=== PATIENT | male | born 1975 | race African-American/Black ===

== ENCOUNTER 2023-03-28 10:26 | Inpatient (IN) | payer BC ==
--- OUTSIDE RECORDS SUMMARY | 2023-03-28 10:34 | XMS REPORT | Continuity of Care Document ---
:1975 Author Organization [facility] t Address [address] [facility] [place] [address] [place] [address] Care Team Providers Name Role Phone Asked, No Pcp Primary Care Physician Unavailable TREASURE MANRIQUE Attending Clinician Unavailable LENKA HILLMAN Attending Clinician Unavailable YING ZAMUDIO Attending Clinician Unavailable WILLOW TORRES Attending Clinician Unavailable DARRIN SERRANO Attending Clinician Unavailable Louis PEARSON, Ara Attending Clinician Unavailable Britney Beaulieu Attending Clinician Unavailable Swathi PEARSON, Berna Attending Clinician Unavail able Mary Mitchell Attending Clinician Unavailable Nain PEARSON, Airam Attending Clinician Unavailable DIANA POSADAS Attending Clinician Unavailable Only, [facility] Test Attending Clinician Unavailable Diana Posadas MD Attending Clinician Malik Swann MD Attending Clinician MORENO MCDANIELS Attending Clinician Unavailable UNKNOWN, ATTENDING Attending Clinician Unavailable Doctor Unassigned, [place] Attending Clinician Unavailable Pcp, Patient Does Not Have A Attending Clinician [phone] Nurse, Ar[facility] Attending Clinician Unavail able Thor Montero MD Attending Clinician THOR MONTERO Attending Clinician Unavailable Luis Antonio Hewitt Attending Clinician Nando hCarles Attending Clinician Jennifer Delgado Attending Clinician Jennifer Delgado Admitting Clinician Payers Payer Name Policy Type Policy Number Effective Date Expiration Date Tavia del angel [place] [facility] [id number] 2017 [facility] 00:00:00 [employer] [facility] [id number] 2017 00:00:00 Problems Condition Condition Condition Status Onset Resolution Last Treating Co mments Source Name Details Category Date Date Treatment Clinician Date Mixed Mixed Disease Active [facility] hyperlipid hyperlipid 01-23 He alth emia emia 00:00: 00 Essential Essential Disease Active 2019-05 [facility] hypertensi hypertensi 06-08 He alth on on 00:00: 00 High blood High blood Disease Active 2019-05 U T pressure pressure 06-08 Health 00:00: 00 Rectal Rectal Disease Active [facility] bleeding bleeding 07-04 Health 00:00: 00 RETAL RETAL Diagnosis Active 2018-07-04 Me moria BLEEDING/H BLEEDING/H 07-04 07:16:00 l A A Active 00:00: Doug 07/04/2018 00 [facility] [place] History of Past Illness Condition Condition Condition Status Onset Resolution Last Treating Co mments Source Name Details Category Date Date Treatment Clinician Date Residual Residual Problem 2018-2018-07-07 2018-07-07 [facility] hemorrhoid hemorrhoid 07-04 01:37:00 01:37:00 l al skin al skin 06:00: [place] tags tags 00 07/04/2018 07/07/2018 [facility] [place] Cutaneous Cutaneous Problem 2018-2018-07-07 2018-07-07 Mem[facility] abscess of abscess of 07-04 01:37:00 01:37:00 l buttock buttock 06:00: Doug 07/04/2018 00 07/07/2018 [facility] [place] Headache Headache Problem 2018-2018-07-07 2018-07-07 Mem[facility] 07/04/201807-04 01:37:00 01:37:00 l 07/07/2018 06:00: Wood [employer] Strain of Strain of Problem 2016-2017-03-10 2017-03-10 Memoria muscle and muscle and 05-07 03:12:39 03:12:39 l tendon of tendon of 05:00: Herm kristine front wall front wall 00 of thorax, of thorax, initial initial encounter encounter 03/07/2017 03/10/2017 [place] Essential Essential Problem 2016-2016-10-22 2016-10-22 Memoria (primary) (primary) 6-15 05:19:06 05:19:06 l hypertensi hypertensi 05:00: He rmann on on 10/19/2016 10/22/2016 [place] Allergies, Adverse Reactions, Alerts Allergy Allergy Status Severity Reaction(s) Onset Inactive Treating Comm ents Source Name Type Date Date Clinician Hydrocod Drug Active [facility] one-Acet Allergy 05-11 Health aminophe 00:00: n 00 Hydrocod Allergy Active Hives 2018-05 [facility] one to 05-16 Health substanc 00:00: e 00 Hydrocod Propensi Active Hives 2018-05 [facility] one ty to 05-16 st adverse 00:00: Hospita reaction 00 l s to drug Vicodin Vicodin Active Memoria l [place] NO KNOWN Drug Active [facility] ALLERGIE Class ity of [facility] Social History Social Habit Start Date Stop Date Quantity Comments Source Sexual orientation [facility] Alcohol intake 2023-01-01 2023-01-01 1.14 /d [facility] 00:00:00 00:00:00 Exposure to 2022-05-05 2022-05-15 Not sure [facility] SARS-CoV-2 (event) 00:00:00 17:44:00 Tobacco use and 2022-01-23 2022-01-23 Smokeless [facility] exposure 00:00:00 00:00:00 tobacco non-user History of Social 2019-03-16 2019-03-[address] function 00:00:00 00:00:00 [facility] Social History 2017-01-12 2017-01-12 [facility] 02:29:44 02:29:44 Sex Ass[birth year] At [birth year] [facility] Smoking Status Start Date Stop Date Source Tobacco smoking consumption unknown [facility] Never smoked tobacco [facility] Medications Ordered Filled Start Stop Current Ordering Indication Dosage Frequency Signature Comments Components Source Medication Medication Date Date Medication? Clinician (SIG) Name Name losartan Yes [id number] 100mg QD Take 1 [facility] (Cozaar) 8 tablet Health 100 MG 00:00: (100 mg tablet 00 total) by mouth 1 (one) time each day. chlorthalid 2023-0 Yes [id number] 25mg QD Take 1 [facility] one 8-28 tablet (25 Health (Hygroton) 00:00: mg total) 25 MG 00 by mouth 1 tablet (one) time each day. tadalafil 2023-0 Yes [id number] 20mg Take 1 U T (Cialis) 20 8-28 tablet (20 He alth MG tablet 00:00: mg total) 00 by mouth 1 (one) time each day if needed for erectile dysfunctio n. Take 30 minutes prior to intercours e hydrocortis 3-0 Yes [id number] Q.5D Apply U T one 2.5 % 8-28 topically Healt h ointment 00:00: 2 (two) 00 times a day if needed for irritation . losartan 2022-0 Yes [id number] 100mg QD Take 1 [facility] (Cozaar) 8-28 tablet Health 100 MG 00:00: (100 mg tablet 00 total) by mouth 1 (one) time each day. chlorthalid 3-0 Yes [id number] 25mg QD Take 1 [facility] one 8-28 tablet (25 Health (Hygroton) 00:00: mg total) 25 MG 00 by mouth 1 tablet (one) time each day. tadalafil 3-0 Yes [id number] 20mg Take 1 U T (Cialis) 20 8-28 tablet (20 He alth MG tablet 00:00: mg total) 00 by mouth 1 (one) time each day if needed for erectile dysfunctio n. Take 30 minutes prior to intercours e hydrocortis 3-0 Yes [id number] Q.5D Apply U T one 2.5 % 8-28 topically Healt h ointment 00:00: 2 (two) 00 times a day if needed for irritation . losartan 3-0 Yes [id number] 100mg QD Take 1 [facility] (Cozaar) 8-28 tablet Health 100 MG 00:00: (100 mg tablet 00 total) by mouth 1 (one) time each day. chlorthalid 2023-0 Yes [id number] 25mg QD Take 1 [facility] one 8-28 tablet (25 Health (Hygroton) 00:00: mg total) 25 MG 00 by mouth 1 tablet (one) time each day. tadalafil Yes [id number] 20mg Take 1 U T (Cialis) 20 01-01 tablet (20 He alth MG tablet 00:00: mg total) 00 by mouth 1 (one) time each day if needed for erectile dysfunctio n. Take 30 minutes prior to intercours e hydrocortis Yes [id number] Q.5D Apply U T one 2.5 % 01-01 topically Healt h ointment 00:00: 2 (two) 00 times a day if needed for irritation . simvastatin 2023- Yes [id number] 20mg Take 1 UT (Zocor) 20 01-01 tablet (20 He alth MG tablet 00:00: 05:59 mg total) 00 :00 by mouth every night. simvastatin 2023- Yes [id number] 20mg Take 1 [facility] (Zocor) 20 01-01 tablet (20 He alth MG tablet 00:00: 05:59 mg total) 00 :00 by mouth every night. simvastatin 2023- Yes [id number] 20mg Take 1 UT (Zocor) 20 01-01 tablet (20 He alth MG tablet 00:00: 05:59 mg total) 00 :00 by mouth every night. simvastatin 2022- No [id number] 20mg Take 1 UT (Zocor) 20 05-18 tablet (20 He alth MG tablet 00:00: 00:00 mg total) 00 :00 by mouth every night. simvastatin 2022- No [id number] 20mg Take 1 UT (Zocor) 20 05-18 tablet (20 He alth MG tablet 00:00: 00:00 mg total) 00 :00 by mouth every night. simvastatin 2022- No [id number] 20mg Take 1 UT (Zocor) 20 05-18 tablet (20 He alth MG tablet 00:00: 00:00 mg total) 00 :00 by mouth every night. chlorthalid Yes [id number] 25mg QD Take 1 [facility] one 1-11 tablet (25 Health (Hygroton) 00:00: mg total) 25 MG 00 by mouth 1 tablet (one) time each day. losartan 3-0 Yes [id number] 100mg QD Take 1 UT (Cozaar) 1-11 tablet Health 100 MG 00:00: (100 mg tablet 00 total) by mouth 1 (one) time each day. hydrocortis 3-0 Yes [id number] Q.5D Apply U T one 2.5 % 1-11 topically Healt h ointment 00:00: 2 (two) 00 times a day if needed for irritation . chlorthalid 3-0 Yes [id number] 25mg QD Take 1 UT one 1-11 tablet (25 Health (Hygroton) 00:00: mg total) 25 MG 00 by mouth 1 tablet (one) time each day. losartan 2022-0 Yes [id number] 100mg QD Take 1 UT (Cozaar) 1-11 tablet Health 100 MG 00:00: (100 mg tablet 00 total) by mouth 1 (one) time each day. hydrocortis 3-0 Yes [id number] Q.5D Apply U T one 2.5 % -11 topically Healt h ointment 00:00: 2 (two) 00 times a day if needed for irritation . chlorthalid 2022-0 3- No [id number] 25mg QD Take 1 UT one 05-17-28 tablet (25 Health (Hygroton) 00:00: 00:00 mg total) 25 MG 00 :00 by mouth 1 tablet (one) time each day. losartan 2022-0 3- No [id number] 100mg QD Take 1 U T (Cozaar) 05-17-28 tablet Health 100 MG 00:00: 00:00 (100 mg tablet 00 :00 total) by mouth 1 (one) time each day. hydrocortis 3-0 2023- No [id number] Q.5D Apply UT one 2.5 % 05-17 topically Heal th ointment 00:00: 00:00 2 (two) 00 :00 times a day if needed for irritation . chlorthalid 2022-0 3- No [id number] 25mg QD Take 1 [facility] one -03 14-28 tablet (25 Health (Hygroton) 00:00: 00:00 mg total) 25 MG 00 :00 by mouth 1 tablet (one) time each day. losartan 2022- No [id number] 100mg QD Take 1 U T (Cozaar) 05-17 tablet Health 100 MG 00:00: 00:00 (100 mg tablet 00 :00 total) by mouth 1 (one) time each day. hydrocortis 2022- No [id number] Q.5D Apply UT one 2.5 % 05-17 topically Heal th ointment 00:00: 00:00 2 (two) 00 :00 times a day if needed for irritation . chlorthalid 2022- No [id number] 25mg QD Take 1 UT one 05-17 tablet (25 Health (Hygroton) 00:00: 00:00 mg total) 25 MG 00 :00 by mouth 1 tablet (one) time each day. losartan No [id number] 100mg QD Take 1 U T (Cozaar) 05-17 tablet Health 100 MG 00:00: 00:00 (100 mg tablet 00 :00 total) by mouth 1 (one) time each day. hydrocortis 2022- No [id number] Q.5D Apply UT one 2.5 % 05-17 topically Heal th ointment 00:00: 00:00 2 (two) 00 :00 times a day if needed for irritation . losartan No [id number] 100mg QD Take 1 U T (Cozaar) 01-23 tablet Health 100 MG 00:00: 04:59 (100 mg tablet 00 :00 total) by mouth 1 (one) time each day. chlorthalid 2022- No [id number] 25mg QD Take 1 UT one 01-23 tablet (25 Health (Hygroton) 00:00: 04:59 mg total) 25 MG 00 :00 by mouth 1 tablet (one) time each day. losartan 2022- No [id number] 100mg QD Take 1 U T (Cozaar) 01-23 tablet Health 100 MG 00:00: 04:59 (100 mg tablet 00 :00 total) by mouth 1 (one) time each day. chlorthalid 2022- No [id number] 25mg QD Take 1 UT one 01-23 tablet (25 Health (Hygroton) 00:00: 04:59 mg total) 25 MG 00 :00 by mouth 1 tablet (one) time each day. losartan 2022- No [id number] 100mg QD Take 1 U T (Cozaar) 01-23 tablet Health 100 MG 00:00: 04:59 (100 mg tablet 00 :00 total) by mouth 1 (one) time each day. chlorthalid No [id number] 25mg QD Take 1 UT one 01-23 tablet (25 Health (Hygroton) 00:00: 04:59 mg total) 25 MG 00 :00 by mouth 1 tablet (one) time each day. losartan No [id number] 100mg QD Take 1 U T (Cozaar) 01-23 tablet Health 100 MG 00:00: 04:59 (100 mg tablet 00 :00 total) by mouth 1 (one) time each day. chlorthalid No [id number] 25mg QD Take 1 UT one 01-23 tablet (25 Health (Hygroton) 00:00: 04:59 mg total) 25 MG 00 :00 by mouth 1 tablet (one) time each day. losartan No [id number] 100mg QD Take 1 U T (Cozaar) 01-23 tablet Health 100 MG 00:00: 00:00 (100 mg tablet 00 :00 total) by mouth 1 (one) time each day. chlorthalid No [id number] 25mg QD Take 1 UT one 01-23 tablet (25 Health (Hygroton) 00:00: 00:00 mg total) 25 MG 00 :00 by mouth 1 tablet (one) time each day. hydrocortis 2022- No Q.5D Apply UT one 2.5 % 01-23 topically Heal th ointment 00:00: 00:00 2 (two) 00 :00 times a day if needed. losartan 2022- No [id number] 100mg QD Take 1 U T (Cozaar) 01-23 tablet Health 100 MG 00:00: 00:00 (100 mg tablet 00 :00 total) by mouth 1 (one) time each day. chlorthalid 2022- No [id number] 25mg QD Take 1 UT one 01-23 tablet (25 Health (Hygroton) 00:00: 00:00 mg total) 25 MG 00 :00 by mouth 1 tablet (one) time each day. hydrocortis 2022- No Q.5D Apply UT one 2.5 % 01-23 topically Heal th ointment 00:00: 00:00 2 (two) 00 :00 times a day if needed. methocarbam Yes [id number] 500mg Q6H Take 1 UT ol 5-03 tablet Health (Robaxin) 00:00: (500 mg 500 MG 00 total) by tablet mouth every 6 (six) hours if needed for muscle spasms for up to 15 days. methocarbam 2021- No [id number] 500mg Q6H Take 1 UT ol -01-23 tablet Health (Robaxin) 00:00: 00:00 (500 mg 500 MG 00 :00 total) by tablet mouth every 6 (six) hours if needed for muscle spasms for up to 15 days. levocetiriz 2022- No [id number] 5mg Take 1 UT ine (Xyzal) 08-30 tablet (5 He alth 5 MG tablet 00:00: 04:59 mg total) 00 :00 by mouth 1 (one) time each day in the evening. chlorthalid 2022- No [id number] 25mg QD Take 1 UT one 08-30 tablet (25 Health (Hygroton) 00:00: 04:59 mg total) 25 MG 00 :00 by mouth 1 tablet (one) time each day. losartan 2022- No [id number] 100mg QD Take 1 U T (Cozaar) 08-30- tablet Health 100 MG 00:00: 04:59 (100 mg tablet 00 :00 total) by mouth 1 (one) time each day. chlorthalid 2021- No [id number] 25mg QD Take 1 UT one 08-30 tablet (25 Health (Hygro[place]) 00:00: 00:00 mg total) 25 MG 00 :00 by mouth 1 tablet (one) time each day. losartan 2021- No [id number] 100mg QD Take 1 U T (Cozaar) 08-30 tablet Health 100 MG 00:00: 00:00 (100 mg tablet 00 :00 total) by mouth 1 (one) time each day. levocetiriz 2021- No [id number] 5mg Take 1 UT ine (Xyzal) 08-30 tablet (5 He alth 5 MG tablet 00:00: 00:00 mg total) 00 :00 by mouth 1 (one) time each day in the evening. Na Yes [id number] DISPENSE UT Sulfate-K - ONE KIT Health Sulfate-Mg 00:00: Sulf 00 (Suprep Bowel Prep Kit) 17.5-3.13-1 .6 GM/177ML solution Na 2021- No [id number] DISPENSE UT Sulfate-K 07-25 ONE KIT Health Sulfate-Mg 00:00: 00:00 Sulf 00 :00 (Suprep Bowel Prep Kit) 17.5-3.13-1 .6 GM/177ML solution hydrocortis 2022- No [id number] Q.5D Apply UT one 2.5 % 07-06 topically Heal th ointment 00:00: 05:59 2 (two) 00 :00 times a day if needed for irritation or rash. hydrocortis 2022- No [id number] Q.5D Apply UT one 2.5 % 07-06 topically Heal th ointment 00:00: 05:59 2 (two) 00 :00 times a day if needed for irritation or rash. hydrocortis 2021- No [id number] Q.5D Apply UT one 2.5 % 07-06 topically Heal th ointment 00:00: 00:00 2 (two) 00 :00 times a day if needed for irritation or rash. chlorthalid 2021- No [id number] 25mg QD Take 1 UT one 07-06 tablet (25 Health ([place]) 00:00: 00:00 mg total) 25 MG 00 :00 by mouth 1 tablet (one) time each day. losartan 2021- No [id number] 100mg QD Take 1 U T (Cozaar) 07-06 tablet Health 100 MG 00:00: 00:00 (100 mg tablet 00 :00 total) by mouth 1 (one) time each day. ibuprofen Yes 600mg Q8H Take 600 UT 600 MG 9-30 mg by Health tablet 00:00: mouth 00 every 8 (eight) hours. ibuprofen 2021- No 600mg Q8H Take 600 UT 600 MG 9-30 09-19 mg by Health tablet 00:00: 00:00 mouth 00 :00 every 8 (eight) hours. gabapentin TAKE 1 UT (Neurontin) 08-12 CAPSULE(S) H ealth 300 MG 00:00: 00:00 BY MOUTH 3 capsule 00 :00 TIMES DAILY FOR PERSISTENT NERVE PAIN/TINGL ING/ NUMBNESS meloxicam TAKE 1 UT (Mobic) 15 08-12 TABLET(S) Hea lth MG tablet 00:00: 00:00 BY MOUTH 00 :00 ONCE A DAY WITH MEALS FOR MUSCLE /JOINT / BACK PAIN AND INFLAMMATI ON losartan 2019-05- No UT (Cozaar) 2 03 Health 100 MG 00:00: 00:00 tablet 00 :00 losartan 2018-05 Yes 25mg QD Take 25 mg Met [facility]odi (COZAAR) 25 1-[address] MG tablet 20:28: daily. Hospit a 20 l losartan 2018-05 Yes 25mg QD Take 25 mg Met hodi (COZAAR) 25 1-[address] MG tablet 20:28: daily. Hospit a 20 l losartan 2018-05 Yes 25mg QD Take 25 mg Met hodi (COZAAR) 25 1-[address] MG tablet 20:28: daily. Hospit a 20 l ibuprofen 2018-05 Yes 800mg Q8H Take 1 Metho di (ADVIL) 800 1-[address] MG tablet 00:00: (800 mg Hospi ta 00 total) by l mouth every 8 (eight) hours as needed for mild pain or moderate pain for up to 30 doses. ibuprofen 2018-05 Yes 800mg Q8H Take 1 Metho di (ADVIL) 800 1-[address] MG tablet 00:00: (800 mg Hospi ta 00 total) by l mouth every 8 (eight) hours as needed for mild pain or moderate pain for up to 30 doses. ibuprofen 2018-05 Yes 800mg Q8H Take 1 Metho di (ADVIL) 800 1-[address] MG tablet 00:00: (800 mg Hospi ta 00 total) by l mouth every 8 (eight) hours as needed for mild pain or moderate pain for up to 30 doses. doxycycline Yes 100 mg = 1 Memoria hyclate 100 2-28 tab, PO, l MG Oral 14:19: Q12H, X 10 Herm kristine Tablet 00 day, # 20 tab, 0 Refill(s) hydrocortis Yes 1 appl, Mem oria one acetate -28 ID, TID, X l 10 MG/ML / 14:19: 14 day, # He rmann Pramoxine 00 10 gm, 0 hydrochlori Refill(s) de 10 MG/ML Rectal Foam [Proctofoam -HC] Epinephrine No Notes: Meño katherin 0.01 MG/ML 07-04 (Same as: l / Lidocaine 13:53: Xylocaine H ermann Hydrochlori 00 w/Epinephr de 10 MG/ML ine) Injectable Solution Saline No Notes: Memoria Flush 0.9% 07-04 (Same as: l 12:56: BD [place] 00 Posiflush) orphenadrin 2016-05 Yes 100 mg = 1 Memoria e 100 mg - tab, PO, l oral 23:04: BID, X 10 Doug tablet, 00 day, # 20 extended tab, 0 release Refill(s) Tylenol 2016-05 No 1 - 2 tab, Meño katherin with 1-01 PO, Q4H, l Codeine #4 23:04: PRN Pain, He rmann oral tablet 00 X 2 day, # 20 ea, 0 Refill(s) Motrin 600 2016-05 Yes 600 mg = 1 M emoria mg oral - tab, PO, l tablet 23:04: Q6H, PRN [place] 00 Pain, take with food, X 5 day, # 20 tab, 0 Refill(s) orphenadrin 2016-05 No 60 mg, Meño katherin e 05-07 Route: IM, l 22:16: ONCE, Dosing Weight 93.182, kg, Priority: STAT, Start date: 03/07/17 17:16:00 CDT, Stop date: 03/07/17 17:16:00 CDT ketOROLAC 2016-05 No 30 mg, Memori a 05-07 Route: IM, l 22:16: ONCE, Dosing Weight 93.182, kg, Priority: STAT, Start date: 03/07/17 17:16:00 CDT, Stop date: 03/07/17 17:16:00 CDT Losartan No Notes: Memoria 01-12 (Same as: l 14:00: Cozaar) Benadryl No Notes: Memoria 01-12 (Same as: l 11:29: Benadryl) Dilaudid No Notes: Memoria 01-12 Same as l 04:11: Dilaudid losartan Yes 100 mg = 1 Mem oria 100 mg oral 01-12 tab, PO, l tablet 02:34: Daily, # Doug 00 90 tab, 0 Refill(s) sodium No 1,000 mL, Memori a chloride 01-12 Rate: 125 l 0.9% 1000 01:20: ml/hr, Wood n ml INJ 00 Infuse 1,000 mL over: 8 hr, Route: IV, Dosing Weight 91.989 kg, Total Volume: 1,000, Start date: 01/11/17 20:20:00 CDT, Duration: 30 day, Stop date: 02/10/17 20:19:00 CDT Saline No Notes: Memoria Flush 0.9% 01-12 (Same as: l 01:20: BD Posiflush) Ondansetron No Notes: Meño katherin 01-12 (Same as: l 01:20: Zofran) MEDICATION WASTE Product Size: 4 mg Product Wasted: ___ mg Morphine No 1 mg, 0.5 Meño katherin 01-12 mL, Route: l 01:20: IVP, Drug form: SOLN, Q6H, Dosing Weight 91.989, kg, PRN Pain Score 7-10, Start date: 01/11/17 20:20:00 CDT, Duration: 30 day, Stop date: 02/10/17 20:19:00 CDT Acetaminoph 2017-0 No Notes: Do M mickya en 01-12 not exceed l 01:20: 4 gm/day. Doug 00 (Same as: Tylenol) Famotidine 2017-0 No 20 mg, Memor ia 01-11 Route: l 23:53: IVP, ONCE, Dosing Weight 91.989, kg, Priority: STAT, Start date: 01/11/17 18:53:00 CDT, Stop date: 01/11/17 18:53:00 CDT Hydromorpho 2017-0 No 0.5 mg, Mem oria ne 01-11 Route: l 23:53: IVP, ONCE, Dosing Weight 91.989, kg, Priority: STAT, Start date: 01/11/17 18:53:00 CDT, Stop date: 01/11/17 18:53:00 CDT Hydromorpho 2017-0 No 1 mg, Memor ia ne 01-11 Route: l 20:40: IVP, ONCE, Dosing Weight 91.989, kg, Priority: STAT, Start date: 01/11/17 15:40:00 CDT, Stop date: 01/11/17 15:40:00 CDT Dilaudid 2017-0 No 1 mg, Memoria 01-11 Route: IV, l 20:37: ONCE, Dosing Weight 91.989, kg, Start date: 01/11/17 15:37:00 CDT, Stop date: 01/11/17 15:37:00 CDT Morphine 2017-0 No 4 mg, Memoria 01-11 Route: l 19:53: IVP, ONCE, Dosing Weight 91.989, kg, Priority: STAT, Start date: 01/11/17 14:53:00 CDT, Stop date: 01/11/17 14:53:00 CDT Ondansetron 2017-0 No 4 mg, Memor ia 01-11 Route: l 19:39: IVP, ONCE, Doug Dosing Weight 91.989, kg, Priority: STAT, Start date: 01/11/17 14:39:00 CDT, Stop date: 01/11/17 14:39:00 CDT Sodium No 1,000 mL, Memori a Chloride 01-11 Infuse l 0.9% 19:39: Over: 1 Doug (Bolus) IV 00 hr, Route: IV, ONCE, Priority: STAT, Dosing Weight 91.989 kg, Start date: 01/11/17 14:39:00 CDT, Duration: 1 doses or times, Stop date: 01/11/17 14:39:00 CDT Saline No Notes: Memoria Flush 0.9% 01-11 (Same as: l 19:39: BD Doug 00 Posiflush) Atenolol Yes 100 mg = 1 Mem oria 100 MG Oral 6-15 tab, PO, l Tablet 13:48: Daily, # [place] 00 30 tab, 0 Refill(s) Hydralazine No Notes: Meño katherin 6-15 (Same as: l 13:20: Apresoline ) Push over 5 minutes Saline No Notes: Memoria Flush 0.9% 6-15 (Same as: l 12:07: BD Doug 00 Posiflush) metoprolol No Notes: Memor ia tartrate 6-15 (Same as: l 12:07: Lopressor) Vital Signs Vital Name Observation Time Observation Value Comments Source Systolic blood 2023-01-01 14:21:00 120 mm[Hg] [facility] pressure Diastolic blood 2023-01-01 14:21:00 80 mm[Hg] [facility] pressure Heart rate 2023-01-01 14:21:00 79 /min [facility] Body temperature 2023-01-01 14:21:00 36.28 Saima [facility] Respiratory rate 2023-01-01 14:21:00 18 /min [facility] Body height 2023-01-01 14:21:00 177.8 cm [facility] Body weight 2023-01-01 14:21:00 94.53 kg [facility] BMI 2023-01-01 14:21:00 29.90 kg/m2 [facility] Oxygen saturation in 2023-01-01 14:21:00 99 /min [facility] Arterial blood by Pulse oximetry Systolic blood 2022-05-17 19:07:00 134 mm[Hg] [facility] pressure Diastolic blood 2022-05-17 19:07:00 91 mm[Hg] [facility] pressure Heart rate 2022-05-17 19:07:00 76 /min [facility] Body temperature 2022-05-17 19:06:00 36.67 [facility]aima [facility] Respiratory rate 2022-05-17 19:06:00 18 /min [facility] Body height 2022-05-17 19:06:00 180.3 cm [facility] Body weight 2022-05-17 19:06:00 95.437 kg [facility] BMI 2022-05-17 19:06:00 29.34 kg/m2 [facility] Oxygen saturation in 2022-05-17 19:06:00 99 /min [facility] Arterial blood by Pulse oximetry Systolic blood 2022-01-23 16:03:00 154 mm[Hg] [facility] pressure Diastolic blood 2022-01-23 16:03:00 91 mm[Hg] [facility] pressure Heart rate 2022-01-23 16:03:00 64 /min [facility] Body temperature 2022-01-23 16:02:00 36.17 [facility]aima [facility] Respiratory rate 2022-01-23 16:02:00 13 /min [facility] Body height 2022-01-23 16:02:00 180.3 cm [facility] Body weight 2022-01-23 16:02:00 94.439 kg [facility] BMI 2022-01-23 16:02:00 29.04 kg/m2 [facility] Oxygen saturation in 2022-01-23 16:02:00 98 /min [facility] Arterial blood by Pulse oximetry Systolic blood 2021-07-06 15:37:00 165 mm[Hg] repeat [facility] pressure Diastolic blood 2021-07-06 15:37:00 104 mm[Hg] repeat [facility] pressure Heart rate 2021-07-06 15:36:00 98 /min [facility] Body temperature 2021-07-06 15:36:00 36.78 Saima [facility] Systolic blood 2021-07-06 15:37:00 165 mm[Hg] repeat [facility] pressure Diastolic blood 2021-07-06 15:37:00 104 mm[Hg] repeat [facility] pressure Heart rate 2021-07-06 15:36:00 98 /min [facility] Body temperature 2021-07-06 15:36:00 36.78 Saima [facility] Systolic (mm Hg) 2018-07-04 14:48:00 Meño rial Doug Diastolic (mm Hg) 2018-07-04 14:48:00 Mem orial [place] Respitory Rate 2018-07-04 14:48:00 Memori al [place] Heart Rate 2018-07-04 14:48:00 [facility] [place] Temperature Oral (F) 2018-07-04 14:48:00 98.2 F [facility] Doug BMI Calculated 2018-07-04 12:45:00 Memori al [place] Weight 2018-07-04 12:45:00 [facility] Height 2018-07-04 12:45:00 180.34 cm [facility] [place] Heart Rate 2018-07-04 12:45:00 [facility] Systolic (mm Hg) 2018-07-04 12:45:00 Meño rial [place] Diastolic (mm Hg) 2018-07-04 12:45:00 [facility] [place] Respitory Rate 2018-07-04 12:45:00 [facility] Temperature Oral (F) 2018-07-04 12:45:00 98.4 F [facility] [place] Systolic (mm Hg) 2017-03-07 23:30:00 Meño [facility] Diastolic (mm Hg) 2017-03-07 23:30:00 [facility] Temperature Oral (F) 2017-03-07 23:30:00 98.1 F [facility] [place] Heart Rate 2017-03-07 23:30:00 [facility] [place] Respitory Rate 2017-03-07 23:30:00 [facility] Weight 2017-03-07 21:59:00 [facility] Temperature Oral (F) 2017-03-07 21:59:00 97.9 F [facility] Respitory Rate 2017-03-07 21:59:00 [facility] [place] Heart Rate 2017-03-07 21:59:00 [facility] Systolic (mm Hg) 2017-03-07 21:59:00 Meño rial Doug Diastolic (mm Hg) 2017-03-07 21:59:00 [facility] [place] Systolic (mm Hg) 2017-01-12 17:51:00 Meño [facility] [place] Diastolic (mm Hg) 2017-01-12 17:51:00 [facility] [place] Respitory Rate 2017-01-12 17:51:00 Memori al Doug Temperature Oral (F) 2017-01-12 17:51:00 98.5 F [facility] Heart Rate 2017-01-12 17:51:00 [facility] [place] Heart Rate 2017-01-12 13:00:00 [facility] Temperature Oral (F) 2017-01-12 13:00:00 97.7 F [facility] [place] Systolic (mm Hg) 2017-01-12 13:00:00 Meño rial Doug Diastolic (mm Hg) 2017-01-12 13:00:00 [facility] [place] Respitory Rate 2017-01-12 13:00:00 Memori al Doug Systolic (mm Hg) 2017-01-12 09:02:00 Meño rial Doug Diastolic (mm Hg) 2017-01-12 09:02:00 [facility] [place] Respitory Rate 2017-01-12 09:02:00 [facility] Heart Rate 2017-01-12 09:02:00 [facility] Temperature Oral (F) 2017-01-12 09:02:00 97.8 F [facility] Height 2017-01-12 02:56:00 180.34 cm [facility] [place] Weight 2017-01-12 02:56:00 [facility] [place] BMI Calculated 2017-01-12 02:56:00 [facility] [place] Weight 2017-01-11 18:12:00 [facility] [place] Heart Rate 2016-10-19 14:10:00 [facility] Respitory Rate 2016-10-19 14:10:00 [facility] Temperature Oral (F) 2016-10-19 14:10:00 97.8 F [facility] [place] Systolic (mm Hg) 2016-10-19 14:10:00 Meño [facility] [place] Diastolic (mm Hg) 2016-10-19 14:10:00 [facility] [place] Respitory Rate 2016-10-19 13:20:00 [facility] [place] Heart Rate 2016-10-19 13:20:00 [facility] [place] Systolic (mm Hg) 2016-10-19 13:20:00 Meño rial Doug Diastolic (mm Hg) 2016-10-19 13:20:00 [facility] [place] Heart Rate 2016-10-19 13:00:00 [facility] [place] Systolic (mm Hg) 2016-10-19 13:00:00 Meño rial Doug Diastolic (mm Hg) 2016-10-19 13:00:00 Mem [facility] Respitory Rate 2016-10-19 13:00:00 Francois Motaann BMI Calculated 2016-10-19 12:03:00 Francois guajardo [place] Weight 2016-10-19 12:03:[address] [facility] Temperature Oral (F) 2016-10-19 12:03:00 97.8 F [facility] [place] Height 2016-10-19 12:03:[address] [facility] Procedures Procedure Date / Time Performed Performing Clinician [facility] e COMPREHENSIVE METABOLIC PANEL 2023-01-01 14:48:00 [facility] LIPID PANEL 2023-01-01 14:48:00 [facility] HEMOGLOBIN A1C 2023-01-01 14:48:00 [facility] TSH W/REFLEX TO FT4 2023-01-01 14:48:00 [place] [facility] h CBC (INCLUDES DIFF/PLT) (REFL) 2023-01-01 14:48:00 [facility] COMPREHENSIVE METABOLIC PANEL 2022-05-17 19:35:00 [facility] LIPID PANEL 2022-05-17 19:35:00 [facility] COMPREHENSIVE METABOLIC PANEL 2021-07-06 16:16:00 [facility] LIPID PANEL 2021-07-06 16:16:00 [facility] HEMOGLOBIN A1C 2021-07-06 16:16:00 [facility] CBC AND DIFFERENTIAL 2021-07-06 16:16:00 [facility] HIV-1 AND HIV-2 ANTIBODIES 2021-07-06 16:16:00 [place] [facility] TSH W/REFLEX TO FT4 2021-07-06 16:16:00 [place] [facility] RPR (DX) W/REFL TITER AND 2021-07-06 16:16:00 [place] [facility] CONFIRM TESTING (REFL) CHLAMYDIA/N. GONORRHOEAE RNA, 2021-07-06 16:16:00 [facility] TMA, UROGENITAL URINALYSIS, COMPLETE W/RFL 2021-07-06 16:16:00 [place] [facility] CULTURE (REFL) HEPATITIS PANEL, GENERAL 2021-07-06 16:16:00 [place], [facility] REFLEXIVE URINE CULTURE 2021-07-06 16:16:00 [place] [facility] ealth Plan of Care Planned Activity Planned Date Details Comments Source Future Scheduled 2023-03-28 [facility] Test 10:30:33 malignant neoplasm of colon (procedure) [code = 222048872] Future Scheduled 2023-03-28 [facility] Test 10:30:33 malignant neoplasm of colon (procedure) [code = 735072491] Future Scheduled 2023-03-28 COVID-19 [facility] 10:30:33 [code = COVID-19 VACCINE (#1)] Future Scheduled 2023-03-28 [facility] Test 10:30:33 malignant neoplasm of colon (procedure) [code = 522563160] Future Scheduled 2023-03-28 [facility] Test 10:30:33 malignant neoplasm of colon (procedure) [code = 433356933] Future Scheduled 2023-03-28 [facility] Test 10:30:33 (#1) [code = INFLUENZA VACCINE (#1)] Future Scheduled 2023-03-28 [facility] Test 10:30:33 malignant neoplasm of colon (procedure) [code = 424822082] Future Scheduled 2022-04-23 COVID-19 VACCINE (#1) [facility] Hospital Test 04:36:56 [code = COVID-19 VACCINE (#1)] Future Scheduled 2022-04-23 COLONOSCOPY SCREENING [facility] Hospital Test 04:36:56 [code = COLONOSCOPY SCREENING] Future Scheduled 2022-04-23 INFLUENZA VACCINE Method [facility] Hospital Test 04:36:56 [code = INFLUENZA VACCINE] Future Scheduled 2022-01-06 INFLUENZA VACCINE Method [facility] Test 09:54:33 [code = INFLUENZA VACCINE] Future Scheduled 2022-01-[address] [facility] Test 09:54:33 (1 of 3 - 3-dose series) [code = HEPATITIS B VACCINES (1 of 3 - 3-dose series)] Future Scheduled 2022-01-06 COVID-19 VACCINE (#1) [facility] Test 09:54:33 [code = COVID-19 VACCINE (#1)] Future Scheduled 2022-01-06 Hepatitis C screening [facility] Test 09:54:33 (procedure) [code = 322893584] Future Scheduled 2022-01-06 COLONOSCOPY SCREENING [facility] Test 09:54:33 [code = COLONOSCOPY SCREENING] Encounters Start End Encounter Admission Attending Care Care Encounter Source Date/Time Date/Time Type Type Clinicians Facility Department ID 2022-11-08 Outpatient [facility] [id number] [place] 21:04:10 [id number] [facility] 2022-10-31 Outpatient [facility] [id number] [place] 12:29:24 [id number] [facility] 2022-05-12 Outpatient [facility] [id number] [place] 12:54:29 [id number] [facility] 2022-02-27 Outpatient [facility] [id number] [place] 14:59:47 [id number] [facility] 2021-07-14 Outpatient MANRIQUE, BRITTANYHAN [facility] [id number] [place] 14:01:48 [facility] 2021-07-06 Outpatient HILLMAN, [facility] [id number] [place] 10:03:07 [facility] [place] 2021-06-27 Outpatient BUNAG, [facility] [id number] [place] 09:51:[address] [facility] 2021-05-20 Outpatient WILKING, [facility] [id number] [place] 15:45:24 [facility] 2021-05-11 Outpatient WILKING, [facility] [id number] [place] 10:21:46 [facility] 2021-05-09 Outpatient WILKING, [facility] [id number] [place] 16:42:19 [facility] 2021-03-11 Outpatient BUNAG, [facility] [id number] [place] 11:36:[address] [facility] 2021-03-07 Outpatient LIZZ, [facility] [id number] [place] 11:36:[address] [facility] 2023-07-04 2023-07-04 Outpatient MAGGIE, [facility] [id number] [place] 10:30:00 [facility]:30:[facility] 2023-01-01 Office Maggie UTP [id number] [place] 09:15:00 09:45:21 Visit Darrin BAPTISTE [id number] Health 9.2.7.2.686 [id number] 2 2022-11-14 2022-11-14 Outpatient MAGGIE, [facility] [id number] [place] 10:30:00 [facility]:30[facility]-17 2022-05-17 Office Maggie TRUDY 1.2.840.114 [id number] [place] 13:00:00 13:30:45 Visit Darrin BAPTISTE [id number] Health 9.2.7.2.686 [id number] 2 2022-05-17 2022-05-17 Outpatient MAGGIE, [facility] [id number] [place] 10:30:00 10:30:00 [facility] 2022-05-16 2022-05-16 Outpatient MELISSA, [facility] [id number] [place] 15:45:00 15:45:00 [facility] 2022-04-24 2022-04-24 Outpatient WILKING, [facility] [id number] [place] 10:00:00 10:00:00 [facility] 2022-03-01 2022-03-01 Outpatient HILLMAN, [facility] [id number] [place] 11:15:00 11:15:00 [facility] [place] 2022-02-07 2022-02-07 Patient Ara Myers UTP 1.2.840.1 14 [id number] [place] 00:00:00 00:00:00 Outreach Ara Myers 350.1.13.5 8 Health 9.2.7.2.686 [id number] 2 2022-02-02 2022-02-02 Patient Ara Myers UTP 1.2.840.1 14 [id number] [place] 00:00:00 00:00:00 Outreach Ara Myers 350.1.13.5 8 Health 9.2.7.2.686 [id number] 2 2022-01-23 2022-01-23 Office SONALIRADHATRUDY 1.2.840.114 [id number] [place] 11:15:00 11:42:59 Visit WILLOW BAPTISTE 350.1.13.58 Health 9.2.7.2.686 [id number] 2 2022-01-23 2022-01-23 Patient Britney Beaulieu TRUDY 1.2.840.114 [id number] [place] 00:00:00 00:00:00 Outreach Britney Beaulieu 350.1.13.58 Health 9.2.7.2.686 [id number] 2 2021-09-19 2021-09-19 Office Treasure Manrique [facility] 1.2.840.114 [id number] [place] 10:45:00 11:24:00 Visit SUGAR 350.1.13.58 [facility] MED 9.2.7.2.686 [place] [address] [id number] AND 3 WOMENS 2021-08-30 2021-08-30 Office Yelitza Hillman 1.2.840.114 [id number] [place] 11:30:00 12:08:45 Visit Lenka Rose 350.1.13.58 [facility] Medical 9.2.7.2.686 [place] [id number] 1 2021-08-19 2021-08-19 Patient Sneha Echevarria 1.2.840.114 [id number] [place] 00:00:00 00:00:00 Outreach Berna Echevarria 350.1.13.58 Health Medical 9.2.7.2.686 [place] [id number] 1 2021-07-25 2021-07-25 Patient Mary Mitchell 1.2.840.114 [id number] [place] 00:00:00 00:00:00 Outreach Mary Mitchell 350.1.13.58 Health Medical 9.2.7.2.686 [place] [id number] 1 2021-07-14 2021-07-14 Office Treasure Manrique TRUDY [facility] 1.2.840.114 13 [id number] [place] 13:00:00 14:12:55 Visit SUGAR 350.1.13.58 [facility] 9.2.7.2.686 [address] [id number] AND 3 WOMENS 2021-07-06 2021-07-06 Office Hillman Frediselaine 1.2.840.114 [id number] [place] 09:30:00 10:03:03 Visit Lenka Rose 350.1.13.58 [facility] Medical 9.2.7.2.686 [place] [id number] 1 2021-07-06 2021-07-06 Office Fredis Hillmanelaine 1.2.840.114 [id number] [place] 09:30:00 10:03:03 Visit Lenka Rose 350.1.13.58 [facility] Medical 9.2.7.2.686 [place] [id number] 1 2021-07-06 2021-07-06 Telephone Airam Gillette [facility] 1.2.84 0.114 [id number] [place] 00:00:00 00:00:00 Airam Gillette 350.1.13.58 Health MEDICAL 9.2.7.2.686 [place] [id number] 0 2020-05-12 2020-05-12 Outpatient Kaz POSADAS [facility] [id number] Univers 13:15:00 13:15:00 DIANA long [facility] 2020-05-12 2020-05-12 Laboratory Only, [facility] Test UNIVERSIT 1.2.84 0.114 [id number] Univers 12:56:47 13:11:47 Only Diana Posadas HEALTH 350.1.13.10 ity [facility] [place].7.2.[place] [id number] [address] 2019-12-10 2019-12-10 Laboratory Only, [facility] Test UNIVERSIT 1.2.84 0.114 [id number] Univers 08:26:27 08:41:27 Only Malik Swann [facility] 350.1.13.10 ity of [place] [id number] [address] 2019-12-10 2019-12-10 Outpatient R POSADAS, [facility] [id number] Univers 08:30:00 08:30:00 DIANA [facility] 2019-12-09 2019-12-09 Outpatient R ENEDELIA, [facility] [id number] Univers 16:30:00 16:30:00 MORENO [facility] 2019-11-19 2019-11-19 Outpatient R HEATH, [facility] [id number] Univers 15:30:00 15:30:00 ATTENDING [facility] 2019-11-19 2019-11-19 Patient Doctor MICHELLE 1.2.840.114 [id number] Univers 00:00:00 00:00:00 Secure Msg Unassigned, DONAL 350.1.13.10 ity of [place] [facility] 4.2.7.2.686 [place] [id number] [address] 2019-08-23 2019-08-23 Telephone Pcp, MICHELLE 1.2.045.279 [id number] Univers 00:00:00 00:00:00 Patient DONAL 350.1.13.10 it y of Does Not HOSP[place] [id number] [address] 2019-08-21 2019-08-22 Nurse Nurse, Arsenio [facility] U ARUN 1.2.840.114 [id number] Univers 18:45:17 09:28:33 Visit Thor Montero 350.1.13.10 it[place] of [place] [id number] Mt dical 042 [place] 2019-08-21 2019-08-21 [facility] [id number] Univers 19:10:00 19:10:00 THOR long [facility] 2018-07-04 2018-07-04 Emergency [facility] [id number] Memoria 12:40:00 14:51:00 r [place] 04 l [place] 2018-07-04 2018-07-04 Outpatient Kash, SL [facility] [id number] 06:40:00 08:51:00 Luis Antonio Muir 2017-03-07 2017-03-07 [facility] [id number] Memoria 21:54:00 23:35:00 r [place] 03 l [place] 2017-03-07 2017-03-07 Outpatient Nando Charles [facility] [id number] 16:54:00 18:35:00 [place] 2017-01-11 2017-01-12 [facility] [id number] Memoria 17:47:00 19:10:00 n r Doug 02 l [place] 2017-01-11 2017-01-12 Outpatient Danny [facility] [id number] 12:47:00 14:10:00 [place] 2016-10-19 2016-10-19 [facility] [id number] Memoria 12:02:00 14:14:00 r Doug 01 l [place] 2016-10-19 2016-10-19 Outpatient Nando Charles [facility] [id number] 07:02:00 09:14:00 [place] Results Test Description Test Time Test Comments Results Result Comments Source CBC (INCLUDES DIFF/PLT) (REFL) 2023-01-02 04:48:00 Test Item Value Reference Range Interpretation Comme nts WHITE BLOOD CELL COUNT 4.7 See_Comment [Aut omated message] The (test code = 6690-2) system which generated this result tra nsmitted reference range : 3.8 - 10.8 Thousand/u L. The reference range was not used to interpr et this result as normal/abnormal . RED BLOOD CELL COUNT 5.23 See_Comment [Autom ated message] The (test code = 789-8) system w [facility] generated this result tra nsmitted reference range : 4.20 - 5.80 Million/uL . The reference range was not used to interpr et this result as normal/abnormal . HEMOGLOBIN (test code = 13.8 g/dL 13.2-17.1 718-7) HEMATOCRIT (test code = 41.6 % 38.5-50.0 4544-3) MCV (test code = 787-2) 79.5 fL 80.0-100.0 L MCH (test code = 785-6) 26.4 pg 27.0-33.0 L MCHC (test code = 786-4) 33.2 g/dL 32.0-36.0 RDW (test code = 788-0) 14.1 % 11.0-15.0 PLATELET COUNT (test 276 See_Comment [Autom ated message] The code = 777-3) system which g enerated this result tra nsmitted reference range : 140 - 400 Thousand/uL . The reference range was not used to interpr et this result as normal/abnormal . MPV (test code = 776-5) 10.5 fL 7.5-12.5 ABSOLUTE NEUTROPHILS 1946 See_Comment [Autom ated message] The (test code = 751-8) system w [employer] generated this result tra nsmitted reference range : 1500 - 7800 cells/uL. The reference range was not used to interpr et this result as normal/abnormal . ABSOLUTE LYMPHOCYTES 1852 See_Comment [Autom ated message] The (test code = 731-0) system w [employer] generated this result tra nsmitted reference range : 850 - 3900 cells/uL. The reference range was not used to interpr et this result as normal/abnormal . ABSOLUTE MONOCYTES (test 724 See_Comment [A utomated message] The code = 742-7) system which g enerated this result tra nsmitted reference range : 200 - 950 cells/uL. T he reference range was not used to interpr et this result as normal/abnormal . ABSOLUTE EOSINOPHILS 150 See_Comment [Autom ated message] The (test code = 711-2) system w [employer] generated this result tra nsmitted reference range : 15 - 500 cells/uL. The r eference range was not u sed to interpret this result as normal/abnormal . ABSOLUTE BASOPHILS (test 28 See_Comment [A utomated message] The code = 704-7) system which g enerated this result tra nsmitted reference range : 0 - 200 cells/uL. The r eference range was not u sed to interpret this result as normal/abnormal . NEUTROPHILS (test code = 41.4 % 770-8) LYMPHOCYTES (test code = 39.4 % 736-9) MONOCYTES (test code = 15.4 % 5905-5) EOSINOPHILS (test code = 3.2 % 713-8) BASOPHILS (test code = 0.6 % 706-2) RAC (test code = RAC) Performing Organization Information: ? ?Site ID: RGA ? ?Name: [employer] [facility] ? ?Address: [address] [place] [phone] ? ?Director: CHRISTINE ROBIN MD,PHD. Lab Interpretation (test Abnormal code = 15287-9) [facility] [id number] 04:48:00 Test Item Value Reference Interpretation Comments Range GLUCOSE (test code 115 mg/dL 65-99 H ? Fasting = 2345-7) reference inter kd For someone wit hout known diabetes, a glucose valuebe tween 100 and 125 mg/ dL is consistent withprediabetes and should be confi rmed with afollow-up test. UREA NITROGEN (BUN) 16 mg/dL 7-25 (test code = 3094-0) CREATININE (test 1.24 mg/dL 0.60-1.29 code = 2160-0) EGFR (test code = 73 See_Comment [Automate d message] [id number]) The system [employer] generated this result transmit gagandeep reference range : > OR = 60 mL/min/1.73m2. The reference range was not used to interpret this result as normal/abnormal . BUN/CREATININE SEE NOTE: See_Comment ? Not Report ed: BUN RATIO (test code = and Creat inine are 3097-3) within ? refere nce range. ? ? [Automated mess age] The system [employer] generated this result transmit gagandeep reference range : 6 - 22 (calc). The reference range was not used to interpret this result as normal/abnormal . SODIUM (test code = 135 mmol/L 466-251 9968-2) POTASSIUM (test 4.2 mmol/L 3.5-5.3 code = 2823-3) CHLORIDE (test code 97 mmol/L 98-110 L = 2075-0) CARBON DIOXIDE 27 mmol/L 20-32 (test code = 8-9) CALCIUM (test code 9.9 mg/dL 8.6-10.3 = 08715-8) PROTEIN, TOTAL 8.1 g/dL 6.1-8.1 (test code = 2885-2) ALBUMIN (test code 4.7 g/dL 3.6-5.1 = 1751-7) GLOBULIN (test code 3.4 See_Comment [Automa gagandeep message] = 49851-7) The system whic h generated this result transmit gagandeep reference range : 1.9 - 3.7 g/dL (thaddeus c). The reference r maría elena was not used to interpret this result as normal/abnormal . ALBUMIN/GLOBULIN 1.4 See_Comment [Automated message] RATIO (test code = The syste m which 1759-0) generated this result transmit gagandeep reference range : 1.0 - 2.5 (calc). T he reference range was not used to interpret this result as normal/abnormal . BILIRUBIN, TOTAL 0.6 mg/dL 0.2-1.2 (test code = 1975-2) ALKALINE 93 U/L 36-130 PHOSPHATASE (test code = 6768-6) AST (test code = 31 U/L 10-40 1920-8) ALT (test code = 55 U/L 9-46 H 1742-6) RAC (test code = Performing RAC) Organization Information: ? ?Site ID: RGA ? ?Name: [employer] [facility] ? ?Address: [address] [place] [phone] ? ?Director: CHRISTINE ROBIN MD,PHD. Lab Interpretation Abnormal (test code = 07595-1) [facility] [id number] 04:48:00 Test Item Value Reference Interpretation Comments Range HEMOGLOBIN A1c 6.1 See_Comment H For someone w александр (test code = known diabetes, a 4548-4) hemoglobin A1c value between 5.7% an d 6.4% is consist ent withprediabetes and should be confi rmed with a follow-u p test. For someo ne with known diab etes, a value <7%indicates that their diabetes is well controlled . K9zjlkonpe shou ld be individualized based on duration ofdiabetes, age , comorbid condit ions, and otherconsiderat ions. This assay resu lt is consistent with an increased risko f diabetes. Curre ntly, no consensus ex ists regarding use ofhemoglobin A1 c for diagnosis of diabetes for children. [Auto mated message] The sy stem which generated this result transmit gagandeep reference range : <5.7 % of total Hgb. The reference r maría elena was not used to interpret this result as normal/abnormal . RAC (test code = Performing RAC) Organization Information: ? ?Site ID: RGA ? ?Name: [employer] [facility] ? ?Address: [address] [place] [phone] ? ?Director: CHRISTINE ROBIN MD,PHD. Lab Interpretation Abnormal (test code = 47310-1) [facility] [id number] 04:48:00 Test Item Value Reference Range Interpretation Comments CHOLESTEROL, TOTAL 210 mg/dL See_Comment H [Automat ed (test code = 2093-3) message ] The system which generated this result transmitted reference range : <=200. The reference range was not used to interpret this result as normal/abnormal . HDL CHOLESTEROL 62 mg/dL See_Comment [Automated (test code = 2085-9) message ] The system which generated this result transmitted reference range : > OR = 40. The reference range was not used to interpret this result as normal/abnormal . TRIGLYCERIDES (test 153 mg/dL See_Comment H [Automa gagandeep code = 2571-8) message] The system which generated this result transmitted reference range : <=150. The reference range was not used to interpret this result as normal/abnormal . LDL-CHOLESTEROL 121 mg/dL (calc) H Reference ra nge: (test code = <100 Desirable 88409-9) range <100 mg/d L for primary prevention; ?<7 0 mg/dL for patients with C HD or diabetic patients with > or = 2 CHD risk factors. LDL-C is now calculated using the Javier-Trevor calculation, which is a validated novel method providin g better accuracy than the Friedewald equation in the estimation of LDL-C. Javier S S et al. CYNTHIA. 2013;310(19): 4471-0305 (http://educati on .Cognio .com/faq/VDP374 ) CHOL/HDLC RATIO 3.4 See_Comment [Automated (test code = 9830-1) message ] The system which generated this result transmitted reference range : <5.0 (calc). Th e reference range was not used to interpret this result as normal/abnormal . NON HDL CHOLESTEROL 148 See_Comment H For marilynn ents with (test code = diabetes plus 1 27079-9) major ASCVD ris k factor, treatin g to a non-HDL-C goal of <100 mg/dL (LDL-C of <70 mg/dL) is considered a therapeutic option. [Automated message] The system which generated this result transmitted reference range : <130 mg/dL (calc). The reference range was not used to interpret this result as normal/abnormal . RAC (test code = Performing RAC) Organization Information: ? ?Site ID: RGA ? ?Name: [employer] [facility] ? ?Address: [address] [place] [address] ? ?Director: CHRISTINE ROBIN MD,PHD. Lab Interpretation Abnormal (test code = 90491-7) [facility] W/REFLEX TO [id number] 04:48:00 Test Item Value Reference Range Interpretation Comments TSH W/REFLEX 1.71 See_Comment [Automated mes gurpreet] TO FT4 (test The system whic h code = generated this 3016-3) result transmit gagandeep reference range : 0.40 - 4.50 mIU /L. The reference r maría elena was not used to interpret this result as normal/abnormal . RAC (test Performing code = RAC) Organization Information: ? ?Site ID: RGA ? ?Name: [employer] [facility] ? ?Address: [address] [place] [address] ? ?Director: CHRISTINE ROBIN MD,PHD. [facility] [id number] 08:00:00 Test Item Value Reference Range Interpretation Comments GLUCOSE (test code 89 mg/dL 65-99 ? = 2345-7) Fasting referen ce interval UREA NITROGEN 16 mg/dL 7-25 (BUN) (test code = 3094-0) CREATININE (test 1.22 mg/dL 0.60-1.29 code = 2160-0) EGFR (test code = See_Comment The eGFR i s based [id number]) on the CKD-EPI 2020 equation. To calculate the n ew eGFR from a previous Creatinine or Cystatin Cresul t, go to https://www.kid ne y.org/professio na ls/kdoqi/gfr%5F ca lculator [Automated message] The system which generated this result transmitted reference range : > OR = 60 mL/min/1.73m2. The reference range was not used to interpr et this result as normal/abnormal . BUN/CREATININE NOT APPLICABLE See_Comment [Automated RATIO (test code = message] The 3097-3) system which generated this result transmitted reference range : 6 - 22 (calc). The reference range was not used to interpr et this result as normal/abnormal . SODIUM (test code 139 mmol/L 135-146 = 2951-2) POTASSIUM (test 4.2 mmol/L 3.5-5.3 code = 2823-3) CHLORIDE (test 102 mmol/L 98-110 code = 2075-0) CARBON DIOXIDE 30 mmol/L 20-32 (test code = 2027-9) CALCIUM (test code 9.7 mg/dL 8.6-10.3 = 85996-2) PROTEIN, TOTAL 7.4 g/dL 6.1-8.1 (test code = 2885-2) ALBUMIN (test code 4.3 g/dL 3.6-5.1 = 1751-7) GLOBULIN (test See_Comment [Automated code = 00245-1) message] The system which generated this result transmitted reference range : 1.9 - 3.7 g/dL (calc). The reference range was not used to interpret this result as normal/abnormal . ALBUMIN/GLOBULIN See_Comment [Automated RATIO (test code = message] The 1759-0) system which generated this result transmitted reference range : 1.0 - 2.5 (calc ). The reference range was not used to interpr et this result as normal/abnormal . BILIRUBIN, TOTAL 0.5 mg/dL 0.2-1.2 (test code = 1974-2) ALKALINE 55 U/L 36-130 PHOSPHATASE (test code = 6768-6) AST (test code = 21 U/L 10-40 1920-8) ALT (test code = 22 U/L 9-46 1742-6) RAC (test code = Performing RAC) Organization Information: ? ?Site ID: RGA ? ?Name: [employer] [facility] ? ?Address: [address] [place] [phone] ? ?Director: ANNE PAN MD [facility] [id number] 08:00:00 Test Item Value Reference Range Interpretation Comments CHOLESTEROL, TOTAL 272 mg/dL See_Comment H [Automat ed (test code = 2093-3) message ] The system which generated this result transmitted reference range : <=200. The reference range was not used to interpret this result as normal/abnormal . HDL CHOLESTEROL 71 mg/dL See_Comment [Automated (test code = 2085-9) message ] The system which generated this result transmitted reference range : > OR = 40. The reference range was not used to interpret this result as normal/abnormal . TRIGLYCERIDES (test 110 mg/dL See_Comment [Automa gagandeep code = 2571-8) message] The system which generated this result transmitted reference range : <=150. The reference range was not used to interpret this result as normal/abnormal . LDL-CHOLESTEROL mg/dL (calc) H Reference ra nge: (test code = <100 Desirable 01352-6) range <100 mg/d L for primary prevention; ?<7 0 mg/dL for patients with C HD or diabetic patients with > or = 2 CHD risk factors. LDL-C is now calculated using the Javier-Trevor calculation, which is a validated novel method providin g better accuracy than the Friedewald equation in the estimation of LDL-C. Javier S S et al. CYNTHIA. 2013;310(19): 6398-4700 (http://educati on .[employer] .com/faq/OJP910 ) CHOL/HDLC RATIO See_Comment [Automated (test code = 9830-1) message ] The system which generated this result transmitted reference range : <5.0 (calc). Th e reference range was not used to interpret this result as normal/abnormal . NON HDL CHOLESTEROL See_Comment H For marilynn ents with (test code = diabetes plus 1 97089-4) major ASCVD ris k factor, treatin g to a non-HDL-C goal of <100 mg/dL (LDL-C of <70 mg/dL) is considered a therapeutic option. [Automated message] The system which generated this result transmitted reference range : <130 mg/dL (calc). The reference range was not used to interpret this result as normal/abnormal . RAC (test code = Performing RAC) Organization Information: ? ?Site ID: RGA ? ?Name: [employer] [facility] ? ?Address: [address] [place] [phone] ? ?Director: ANNE PAN MD Lab Interpretation Abnormal (test code = 12773-7) [facility] HealthCBC and [id number] 20:00:00 Test Item Value Reference Range Interpretation Comments WHITE BLOOD CELL See_Comment L [Automated COUNT (test code = message] The 6690-2) system which generated this result transmitted reference range : 3.8 - 10.8 Thousand/uL. Th e reference range was not used to interpret this result as normal/abnormal . RED BLOOD CELL COUNT See_Comment [Autom ated (test code = 789-8) message] The system which generated this result transmitted reference range : 4.20 - 5.80 Million/uL. The reference range was not used to interpret this result as normal/abnormal . HEMOGLOBIN (test 12.4 g/dL 13.2-17.1 L code = 718-7) HEMATOCRIT (test 39.1 % 38.5-50.0 code = 4544-3) MCV (test code = 80.6 fL 80.0-100.0 787-2) MCH (test code = 25.6 pg 27.0-33.0 L 785-6) MCHC (test code = 31.7 g/dL 32.0-36.0 L 786-4) RDW (test code = 15.9 % 11.0-15.0 H 788-0) PLATELET COUNT (test See_Comment [Autom ated code = 777-3) message] The system which generated this result transmitted reference range : 140 - 400 Thousand/uL. Th e reference range was not used to interpret this result as normal/abnormal . MPV (test code = 11.7 fL 7.5-12.5 776-5) ABSOLUTE NEUTROPHILS See_Comment [Autom ated (test code = 751-8) message] The system which generated this result transmitted reference range : 1500 - 7800 cells/uL. The reference range was not used to interpret this result as normal/abnormal . ABSOLUTE LYMPHOCYTES See_Comment [Autom ated (test code = 731-0) message] The system which generated this result transmitted reference range : 850 - 3900 cells/uL. The reference range was not used to interpret this result as normal/abnormal . ABSOLUTE MONOCYTES See_Comment [Automat ed (test code = 742-7) message] The system which generated this result transmitted reference range : 200 - 950 cells/uL. The reference range was not used to interpret this result as normal/abnormal . ABSOLUTE EOSINOPHILS See_Comment [Autom ated (test code = 711-2) message] The system which generated this result transmitted reference range : 15 - 500 cells/uL. The reference range was not used to interpret this result as normal/abnormal . ABSOLUTE BASOPHILS See_Comment [Automat ed (test code = 704-7) message] The system which generated this result transmitted reference range : 0 - 200 cells/u L. The reference range was not used to interpr et this result as normal/abnormal . NEUTROPHILS (test 50.2 % code = 770-8) LYMPHOCYTES (test 30.3 % code = 736-9) MONOCYTES (test code 11.5 % = 5905-5) EOSINOPHILS (test 7.1 % code = 713-8) BASOPHILS (test code 0.9 % = 706-2) RAC (test code = Performing RAC) Organization Information: ? ?Site ID: RGA ? ?Name: [employer] [facility] ? ?Address: [address] [place] [phone] ? ?Director: ANNE PAN MD Lab Interpretation Abnormal (test code = 28758-8) [facility] [id number] 20:00:00 Test Item Value Reference Range Interpretation Comments GLUCOSE (test code 92 mg/dL 65-99 ? = 2345-7) Fasting referen ce interval UREA NITROGEN 16 mg/dL 7-25 (BUN) (test code = 3094-0) CREATININE (test 1.2 mg/dL 0.60-1.35 code = 2160-0) eGFR NON- See_Comment [Automated [place] (test message] The code = 43246-0) system which generated this result transmitted reference range : > OR = 60 mL/min/1.73m2. The reference range was not used to interpr et this result as normal/abnormal . eGFR See_Comment [Automated [place] (test message] The code = 09919-7) system which generated this result transmitted reference range : > OR = 60 mL/min/1.73m2. The reference range was not used to interpr et this result as normal/abnormal . BUN/CREATININE NOT APPLICABLE See_Comment [Automated RATIO (test code = message] The 3097-3) system which generated this result transmitted reference range : 6 - 22 (calc). The reference range was not used to interpr et this result as normal/abnormal . SODIUM (test code 139 mmol/L 135-146 = 2951-2) POTASSIUM (test 4.6 mmol/L 3.5-5.3 code = 2823-3) CHLORIDE (test 104 mmol/L 98-110 code = 2075-0) CARBON DIOXIDE 27 mmol/L 20-32 (test code = 8-9) CALCIUM (test code 9.4 mg/dL 8.6-10.3 = 41797-5) PROTEIN, TOTAL 7.6 g/dL 6.1-8.1 (test code = 2885-2) ALBUMIN (test code 4.4 g/dL 3.6-5.1 = 1751-7) GLOBULIN (test See_Comment [Automated code = 84491-2) message] The system which generated this result transmitted reference range : 1.9 - 3.7 g/dL (calc). The reference range was not used to interpret this result as normal/abnormal . ALBUMIN/GLOBULIN See_Comment [Automated RATIO (test code = message] The 1759-0) system which generated this result transmitted reference range : 1.0 - 2.5 (calc ). The reference range was not used to interpr et this result as normal/abnormal . BILIRUBIN, TOTAL 0.3 mg/dL 0.2-1.2 (test code = 1975-2) ALKALINE 58 U/L 36-130 PHOSPHATASE (test code = 6768-6) AST (test code = 19 U/L 10-40 1920-8) ALT (test code = 21 U/L 9-46 2-6) RAC (test code = Performing RAC) Organization Information: ? ?Site ID: RGA ? ?Name: [employer] [facility] ? ?Address: [address] [place] [phone] ? ?Director: ANNE PAN MD [facility] [id number] 20:00:00 Test Item Value Reference Interpretation Comments Range HEMOGLOBIN A1c See_Comment H For someone w александр (test code = known diabetes, a 4548-4) hemoglobin A1c value between 5.7% an d 6.4% is consist ent withprediabetes and should be confi rmed with a follow-u p test. For someo ne with known diab etes, a value <7%indicates that their diabetes is well controlled . B9ozhioduq shou ld be individualized based on duration ofdiabetes, age , comorbid condit ions, and otherconsiderat ions. This assay resu lt is consistent with an increased risko f diabetes. Curre ntly, no consensus ex ists regarding use ofhemoglobin A1 c for diagnosis of diabetes for children. [Auto mated message] The sy stem which generated this result transmit gagandeep reference range : <5.7 % of total Hgb. The reference r maría elena was not used to interpret this result as normal/abnormal . RAC (test code = Performing RAC) Organization Information: ? ?Site ID: RGA ? ?Name: [employer] [facility] ? ?Address: [address] [place] [address] ? ?Director: ANNE PAN MD Lab Interpretation Abnormal (test code = 32129-9) [facility] HealthHEPATITIS PANEL, [id number] 20:00:00 Test Item Value Reference Range Interpretation Comments HEPATITIS A AB, BORDERLINE NON-REACTIVE A For additio nal TOTAL (test code = informati on, 38873-4) please refer to http://educatio n. [employer]. com/faq/TDG219 (This link is being provided for informational/e du cational purpos es only.) HEPATITIS B SURFACE REACTIVE NON-REACTIVE A ANTIBODY QL (test code = 00494-1) HEPATITIS B SURFACE NON-REACTIVE NON-REACTIVE ANTIGEN (test code = 5196-1) HEPATITIS B CORE AB NON-REACTIVE NON-REACTIVE TOTAL (test code = 69115-2) HEPATITIS C ANTIBODY NON-REACTIVE NON-REACTIVE (test code = 59738-6) SIGNAL TO CUT-OFF <1.00 HCV antib tatiana was (test code = non-reactive. 84327-4) There is no laboratory evidence of HCV infection. In most cases, no further action is required. However,if rece nt HCV exposure is suspected, a te st for HCV RNA(july t code 80144) is suggested. For additional information please refer tohttp://educat io n.[employer]/faq/FAQ22 v1 (This link is being provided for informational/e du cational purpos es only.) RAC (test code = Performing RAC) Organization Information: ? ?Site ID: RGA ? ?Name: [employer] [facility] ? ?Address: [address] [place] [phone] ? ?Director: ANNE PAN MD Lab Interpretation Abnormal (test code = 17618-2) [facility] HealthHIV-1/2 Antigen and Antibodies, 4th Gen w [id number] 20:00:00 Test Item Value Reference Range Interpretation Comments HIV AG/AB, NON-REACTIVE NON-REACTIVE HIV-1 antigen a nd 4TH GEN HIV-1/HIV-2 ant ibodies (test code were notdetecte d. There = 80528-1) is no laborator y evidence of HIVinfection . PLEASE NOTE: This info rmation has been disclo sed toyou from records wh ose confidentiality may beprotected by state law. ?If your state requires suchprotection, then the state law prohi bits you frommaking any further disclosure of t he informationwith out the specific writte n consent of the personto whom it pertains, or as otherwise permitted by dahiana sanders.A general authori zation for the release of medical orother informa tion is NOT sufficient for this purpose. ?For a dditional information ple ase refer tohttp://educat ion.[employer].[facility]/ faq/RMB593 (This link is b eing provided for informational/e ducational purposes only.) The performance of this assay has not been clinicallyvalid ated in patients less t fowler 2 years old. RAC (test Performing code = RAC) Organization Information: ? ?Site ID: RGA ? ?Name: [employer] [facility] ? ?Address: [address] [place] [phone] ? ?Director: ANNE PAN MD [facility] [id number] 20:00:00 Test Item Value Reference Range Interpretation Comments CHOLESTEROL, TOTAL 243 mg/dL <200 H (test code = 2093-3) HDL CHOLESTEROL 70 mg/dL See_Comment [Automated (test code = 5-9) message ] The system which generated this result transmitted reference range : > OR = 40. The reference range was not used to interpret this result as normal/abnormal . TRIGLYCERIDES (test 104 mg/dL <150 code = 2571-8) LDL-CHOLESTEROL mg/dL (calc) H Reference ra nge: (test code = <100 Desirable 73156-7) range <100 mg/d L for primary prevention; ?<7 0 mg/dL for patients with C HD or diabetic patients with > or = 2 CHD risk factors. LDL-C is now calculated using the Javier-Trevor calculation, which is a validated novel method providin g better accuracy than the Friedewald equation in the estimation of LDL-C. Javier S S et al. CYNTHIA. 2013;310(19): 7481-7051 (http://educati on .[employer] .com/faq/SSD063 ) CHOL/HDLC RATIO See_Comment [Automated (test code = 9830-1) message ] The system which generated this result transmitted reference range : <5.0 (calc). Th e reference range was not used to interpret this result as normal/abnormal . NON HDL CHOLESTEROL See_Comment H For marilynn ents with (test code = diabetes plus 1 75472-3) major ASCVD ris k factor, treatin g to a non-HDL-C goal of <100 mg/dL (LDL-C of <70 mg/dL) is considered a therapeutic option. [Automated message] The system which generated this result transmitted reference range : <130 mg/dL (calc). The reference range was not used to interpret this result as normal/abnormal . RAC (test code = Performing RAC) Organization Information: ? ?Site ID: RGA ? ?Name: [employer] [facility] ? ?Address: [address] [place] [phone] ? ?Director: ANNE PAN MD Lab Interpretation Abnormal (test code = 79686-6) [facility] W/REFLEX TO [id number] 20:00:00 Test Item Value Reference Range Interpretation Comments TSH W/REFLEX See_Comment [Automated mes gurpreet] TO FT4 (test The system whic h code = generated this 3016-3) result transmit gagandeep reference range : 0.40 - 4.50 mIU /L. The reference r maría elena was not used to interpret this result as normal/abnormal . RAC (test Performing code = RAC) Organization Information: ? ?Site ID: RGA ? ?Name: [employer] [facility] ? ?Address: [address] [place] [phone] ? ?Director: ANNE PAN MD [place] HealthURINALYSIS, COMPLETE W/RFL CULTURE (REFL)2021-07-07 20:00:00 Test Item Value Reference Range Interpretation Comments COLOR (test code YELLOW YELLOW = 5778-6) APPEARANCE (test CLEAR CLEAR code = 5767-9) SPECIFIC GRAVITY 1.001-1.035 (test code = 5811-5) PH (test code = 5.0-8.0 5803-2) GLUCOSE (test NEGATIVE NEGATIVE code = 74237-0) BILIRUBIN (test NEGATIVE NEGATIVE code = 5770-3) KETONES (test NEGATIVE NEGATIVE code = 2514-8) BLOOD, UA (test NEGATIVE NEGATIVE code = 5794-3) PROTEIN (test NEGATIVE NEGATIVE code = 83822-6) NITRITE (test NEGATIVE NEGATIVE code = 5802-4) LEUKOCYTE NEGATIVE NEGATIVE ESTERASE (test code = 5799-2) WBC (test code = NONE SEEN See_Comment [Automated 5821-4) message] The system which generated this result transmit gagandeep reference range : < OR = 5 /HPF. Th e reference range was not used to interpret this result as normal/abnormal . RBC (test code = NONE SEEN See_Comment [Automated 29758-4) message] The system which generated this result transmit gagandeep reference range : < OR = 2 /HPF. Th e reference range was not used to interpret this result as normal/abnormal . SQUAMOUS NONE SEEN See_Comment [Automated EPITHELIAL CELLS message] Th e (test code = system which 40224-9) generated this result transmit gagandeep reference range : < OR = 5 /HPF. Th e reference range was not used to interpret this result as normal/abnormal . BACTERIA (test NONE SEEN NONE SEEN /HPF code = 5769-5) HYALINE CAST NONE SEEN NONE SEEN /LPF (test code = 5796-8) RAC (test code = Performing RAC) Organization Information: ? ?Site ID: RGA ? ?Name: [facility] ? ?Address: [address] [place] [phone] ? ?Director: ANNE PAN MD [facility] HealthCHLAMYDIA/N. GONORRHOEAE RNA, TMA, [id number] 20:00:00 Test Item Value Reference Range Interpretation Comments CHLAMYDIA NOT DETECTED NOT DETECTED TRACHOMATIS RNA, TMA, UROGENITAL (test code = 10104-8) NEISSERIA NOT DETECTED NOT DETECTED GONORRHOEAE RNA, TMA, UROGENITAL (test code = 29387-8) (Always Message) SEE NOTE The analyti thaddeus (test code = performance 970975254) characteristics of thisassay, when used to test SurePat h(TM) specimens have beendetermined by [employer]. The modificatio ns havenot been cl eared or approved by the FDA. This assay hasbeen validat ed pursuant to the CLIA regulations and isused for clin ical purposes. For additional information, pl ease refer tohttps://educa sp. [employer] /faq/NIV763(Huy [place] s link is being provided for information/edu catio nal purposes on ly.) RAC (test code = Performing RAC) Organization Information: ? ?Site ID: RGA ? ?Name: [employer] [facility] ? ?Address: [address] [place] [phone] ? ?Director: ANNE PAN MD [place] HealthRPR (DX) W/REFL TITER AND CONFIRM TESTING (REFL)2021-07-07 20:00:00 Test Item Value Reference Range Interpretation Comments RPR (DX) W/REFL TITER NON-REACTIVE NON-REACTIVE AND CONFIRMATORY TESTING (test code = 08762-0) RAC (test code = RAC) Performing Organization Information: ? ?Site ID: RGA ? ?Name: [employer] [facility] ? ?Address: [address] [place] [phone] ? ?Director: ANNE PAN MD [facility] HealthREFLEXIVE URINE [id number] 20:00:00 Test Item Value Reference Range Interpretation Comments REFLEXIVE URINE See Below NO CULTURE CULTURE (test INDICATED code = 630-4) RAC (test code = Performing RAC) Organization Information: ? ?Site ID: RGA ? ?Name: [employer] [facility] ? ?Address: [address] [place] [address] ? ?Director: ANNE PAN MD [facility]2019-02-28 13:06:00 Test Item Value Reference Range Interpretation Comments eGFR (test code = eGFR) 83 [facility]2019-02-28 13:06:00 Test Item Value Reference Range Interpretation Comments Alk Phos (test code = Alk Phos) 68 39-136 [facility]2019-02-28 13:06:00 Test Item Value Reference Range Interpretation Comments Bili Total (test code = Bili Total) 0.4 0.2-1.3 [facility]2019-02-28 13:06:00 Test Item Value Reference Range Interpretation Comments Calcium Lvl (test code = Calcium Lvl) 8.5 8.5-10.5 [facility]2019-02-28 13:06:00 Test Item Value Reference Range Interpretation Comments Chloride Lvl (test code = Chloride Lvl) 104 95-109 [facility]2019-02-28 13:06:00 Test Item Value Reference Range Interpretation Comments Potassium Lvl (test code = Potassium 4.1 3.5-5.1 Lvl) [facility]2019-02-28 13:06:00 Test Item Value Reference Range Interpretation Comments CO2 (test code = CO2) 26 24-32 [facility]2019-02-28 13:06:00 Test Item Value Reference Range Interpretation Comments Sodium Lvl (test code = Sodium Lvl) 137 135-145 [facility]2019-02-28 13:06:00 Test Item Value Reference Range Interpretation Comments Total Protein (test code = Total 7.7 6.4-8.4 Protein) [facility]2019-02-28 13:06:00 Test Item Value Reference Range Interpretation Comments Albumin Lvl (test code = Albumin Lvl) 3.7 3.5-5.0 [facility]2019-02-28 13:06:00 Test Item Value Reference Range Interpretation Comments ALT (test code = ALT) 28 <=65 [facility]2019-02-28 13:06:00 Test Item Value Reference Range Interpretation Comments AST (test code = AST) 20 <=37 [facility]2019-02-28 13:06:00 Test Item Value Reference Range Interpretation Comments Glucose Lvl (test code = Glucose Lvl) 105 70-99 [facility]2019-02-28 13:06:00 Test Item Value Reference Range Interpretation Comments BUN (test code = BUN) 14 7-22 [facility]2019-02-28 13:06:00 Test Item Value Reference Range Interpretation Comments Creatinine Lvl (test code = Creatinine 1.23 0.50-1.40 Lvl) [facility]2019-02-28 13:06:00 Test Item Value Reference Range Interpretation Comments AGAP (test code = AGAP) 11.1 10.0-20.0 [facility]2019-02-28 13:06:00 Test Item Value Reference Range Interpretation Comments Globulin (test code = Globulin) 4.0 2.7-4.2 [facility]2019-02-28 13:06:00 Test Item Value Reference Range Interpretation Comments B/C Ratio (test code = B/C Ratio) 11 1 25 [facility]2019-02-28 13:06:00 Test Item Value Reference Range Interpretation Comments A/G Ratio (test code = A/G Ratio) 0.9 1 0.7-1.6 [facility]MCISFATYDU5926[facility]59-15 13:06:00 Test Item Value Reference Range Interpretation Comments Eosinophils # (test code = Eosinophils 0.1 <=0.5 #) [facility]CsttvzqPAHBFGRCKV1703-26-57 13:06:00 Test Item Value Reference Range Interpretation Comments Neutrophils # (test code = Neutrophils 1.9 1.5-8.1 #) [facility] CenterSxtugnnCYEKHMWTYW8873-62-53 13:06:00 Test Item Value Reference Range Interpretation Comments Lymphocytes # (test code = Lymphocytes 0.7 1.0-5.5 #) [facility] CenterAcorofqRQRFBOLZEX8209-84-96 13:06:00 Test Item Value Reference Range Interpretation Comments Monocytes # (test code = Monocytes #) 0.5 <=0.8 [place] 373699-02-28 13:06:00 Test Item Value Reference Range Interpretation Comments Eosinophils (test code = Eosinophils) 3.8 <=4.0 [facility] CenterWznjvyvPQDLHTFVIE5175-98-79 13:06:00 Test Item Value Reference Range Interpretation Comments Monocytes (test code = Monocytes) 15.4 2.0-12.0 [facility] CenterEjinlmpRRKBZRFEEY7663-66-24 13:06:00 Test Item Value Reference Range Interpretation Comments Basophils (test code = Basophils) 0.9 <=1.0 [facility] CenterBnnjvjdUEQLGGMKWM6163-99-84 13:06:00 Test Item Value Reference Range Interpretation Comments Lymphocytes (test code = Lymphocytes) 22.6 20.0-40.0 [facility] CenterKvwioqeSHRCXJGHLN4831-81-59 13:06:00 Test Item Value Reference Range Interpretation Comments Segs (test code = Segs) 57.3 45.0-75.0 [facility] CenterKdrokjbQURBKDHPSE1780-71-78 13:06:00 Test Item Value Reference Range Interpretation Comments PTT (test code = PTT) 33.3 s 22.9-35.8 [facility] CenterSixalurFKXTMANQXK0084-33-73 13:06:00 Test Item Value Reference Range Interpretation Comments INR (test code = INR) 1.08 1 0.85-1.17 [facility] CenterSiejdfqWMLUHTWGQN3524-55-13 13:06:00 Test Item Value Reference Range Interpretation Comments PT (test code = PT) 13.8 s 12.0-14.7 [facility] CenterNevteoxSPRKIMEZYZ8071-18-37 13:06:00 Test Item Value Reference Range Interpretation Comments MCH (test code = MCH) 27.6 pg 27.0-31.0 [facility] CenterJyjnmrsKUAJWHUWDW0789-14-75 13:06:00 Test Item Value Reference Range Interpretation Comments Hct (test code = Hct) 41.2 42.0-54.0 [facility] CenterGmfndnuRJQOMYQWHK7453-29-15 13:06:00 Test Item Value Reference Range Interpretation Comments MCV (test code = MCV) 84.8 80.0-94.0 [facility] CenterZmpylsnMHRFNZSWWB9165-98-12 13:06:00 Test Item Value Reference Range Interpretation Comments MCHC (test code = MCHC) 32.5 32.0-36.0 [facility] CenterZldpxlmUAWXKVFLDY3454-55-41 13:06:00 Test Item Value Reference Range Interpretation Comments WBC (test code = WBC) 3.2 3.7-10.4 [facility] CenterUeqalbnDOUECUIMHZ8451-99-83 13:06:00 Test Item Value Reference Range Interpretation Comments Hgb (test code = Hgb) 13.4 14.0-18.0 [facility]ucd[facility]iOTVUEZIBRY5097-97-54 13:06:00 Test Item Value Reference Range Interpretation Comments RBC (test code = RBC) 4.85 4.70-6.10 [facility] CenterJggurtrWTXLAYEQTR8830-60-30 13:06:00 Test Item Value Reference Range Interpretation Comments Platelet (test code = Platelet) 183 133-450 [facility] HospitalRvzjnqhYMKCUUFNFT4944-38-25 13:06:00 Test Item Value Reference Range Interpretation Comments MPV (test code = MPV) 9.0 7.4-10.4 [facility]ZyzmiusLEKEFZFNTQ9954-19-88 13:06:00 Test Item Value Reference Range Interpretation Comments RDW (test code = RDW) 15.5 11.5-14.5 [facility] [id number] 13:06:00 Test Item Value Reference Range Interpretation Comments Occult Bld Stl (test Negative (07/04/18 7:06 code = Occult Bld Stl) AM) [facility]2017-09-08 08:09:00 Test Item Value Reference Range Interpretation Comments Creatinine Lvl (test code = Creatinine 1.13 0.50-1.40 Lvl) [facility]2017-09-08 08:09:00 Test Item Value Reference Range Interpretation Comments BUN (test code = BUN) 13 7-22 [facility]2017-09-08 08:09:00 Test Item Value Reference Range Interpretation Comments Glucose Lvl (test code = Glucose Lvl) 98 70-99 [facility]2017-09-08 08:09:00 Test Item Value Reference Range Interpretation Comments Total Protein (test code = Total 7.7 6.4-8.4 Protein) [facility]2017-09-08 08:09:00 Test Item Value Reference Range Interpretation Comments Calcium Lvl (test code = Calcium Lvl) 8.2 8.5-10.5 [facility]2017-09-08 08:09:00 Test Item Value Reference Range Interpretation Comments CO2 (test code = CO2) 26 24-32 [facility]WzhuvflEWDEWEZDMM0988-81-51 08:09:00 Test Item Value Reference Range Interpretation Comments MCH (test code = MCH) 27.5 pg 27.0-31.0 [facility] CenterHtdoqpfJKKIEGTBGQ9601-68-54 08:09:00 Test Item Value Reference Range Interpretation Comments Platelet (test code = Platelet) 179 133-450 [facility] CenterAgoscyiYUPKWNOMBR6503-40-64 08:09:00 Test Item Value Reference Range Interpretation Comments MPV (test code = MPV) 9.2 7.4-10.4 [facility] CenterNvtvxtoNRQRGDCYZK6055-10-75 08:09:00 Test Item Value Reference Range Interpretation Comments MCHC (test code = MCHC) 33.0 32.0-36.0 [facility] CenterTbjywdlXGNRNOILZI4174-20-50 08:09:00 Test Item Value Reference Range Interpretation Comments RDW (test code = RDW) 15.6 11.5-14.5 [facility] CenterQmabmwcKWOIFKFFLH7347-52-13 08:09:00 Test Item Value Reference Range Interpretation Comments WBC (test code = WBC) 6.5 3.7-10.4 [facility] CenterWpkchmcKDVHZNFMKU0163-54-36 08:09:00 Test Item Value Reference Range Interpretation Comments Hct (test code = Hct) 40.1 42.0-54.0 [facility] CenterZffrqyjGOOXHEQXYP8925-64-16 08:09:00 Test Item Value Reference Range Interpretation Comments MCV (test code = MCV) 83.3 80.0-94.0 [facility] CenterAlwkzmsKOVSDUKLRD5462-33-23 08:09:00 Test Item Value Reference Range Interpretation Comments Hgb (test code = Hgb) 13.3 14.0-18.0 [facility] CenterXrgrkhlLVQXCNYXNM6095-08-43 08:09:00 Test Item Value Reference Range Interpretation Comments RBC (test code = RBC) 4.82 4.70-6.10 [facility] CenterFodqlwtFEHSQZHDHA6816-77-88 08:09:00 Test Item Value Reference Range Interpretation Comments Segs (test code = Segs) 73.3 45.0-75.0 [facility] CenterFmiuenvDCEXAFYTTA9428-82-03 08:09:00 Test Item Value Reference Range Interpretation Comments Eosinophils (test code = Eosinophils) 1.3 <=4.0 [facility] CenterEiuobesWTLKXKXLFF6269-64-42 08:09:00 Test Item Value Reference Range Interpretation Comments Monocytes (test code = Monocytes) 9.5 2.0-12.0 [facility] CenterSuiishrNDLFFXKHJC2539-88-33 08:09:00 Test Item Value Reference Range Interpretation Comments Lymphocytes (test code = Lymphocytes) 15.6 20.0-40.0 [facility] CenterMvgimbcHKXZFICPRT3874-02-17 08:09:00 Test Item Value Reference Range Interpretation Comments Basophils (test code = Basophils) 0.3 <=1.0 [facility] CenterTpzouorPZFMZZLWPP8349-49-99 08:09:00 Test Item Value Reference Range Interpretation Comments Segs-Bands # (test code = Segs-Bands #) 4.8 1.5-8.1 [facility] CenterFzblvngXMQNUKIQMA3398-20-79 08:09:00 Test Item Value Reference Range Interpretation Comments Eosinophils # (test code = Eosinophils 0.1 <=0.5 #) [facility] CenterEkvfztqNEHEKYHGGC8183-04-57 08:09:00 Test Item Value Reference Range Interpretation Comments Lymphocytes # (test code = Lymphocytes 1.0 1.0-5.5 #) [facility] CenterRjepuxuRZMEUYQCOU5847-39-93 08:09:00 Test Item Value Reference Range Interpretation Comments Monocytes # (test code = Monocytes #) 0.6 <=0.8 [facility] CenterFhslykjWDWAFAILIK2362-00-32 08:09:00 Test Item Value Reference Range Interpretation Comments Basophils # (test code = Basophils #) 0.0 <=0.2 [facility]2017-09-08 08:09:00 Test Item Value Reference Range Interpretation Comments A/G Ratio (test code = A/G Ratio) 0.9 0.7-1.6 [facility]2017-09-08 08:09:00 Test Item Value Reference Range Interpretation Comments Globulin (test code = Globulin) 4.0 2.7-4.2 [facility]2017-09-08 08:09:00 Test Item Value Reference Range Interpretation Comments B/C Ratio (test code = B/C Ratio) 12 6-25 [facility]2017-09-08 08:09:00 Test Item Value Reference Range Interpretation Comments AGAP (test code = AGAP) 14.9 10.0-20.0 [facility]2017-09-08 08:09:00 Test Item Value Reference Range Interpretation Comments eGFR (test code = eGFR) 93 [facility]2017-09-08 08:09:00 Test Item Value Reference Range Interpretation Comments Bili Total (test code = Bili Total) 0.5 0.2-1.3 [facility]2017-09-08 08:09:00 Test Item Value Reference Range Interpretation Comments Alk Phos (test code = Alk Phos) 60 39-136 [facility]2017-09-08 08:09:00 Test Item Value Reference Range Interpretation Comments AST (test code = AST) 20 <=37 [facility]2017-09-08 08:09:00 Test Item Value Reference Range Interpretation Comments ALT (test code = ALT) 29 <=65 [facility]2017-09-08 08:09:00 Test Item Value Reference Range Interpretation Comments Albumin Lvl (test code = Albumin Lvl) 3.7 3.5-5.0 [facility]2017-09-08 08:09:00 Test Item Value Reference Range Interpretation Comments Chloride Lvl (test code = Chloride Lvl) 102 95-109 [facility]2017-09-08 08:09:00 Test Item Value Reference Range Interpretation Comments Potassium Lvl (test code = Potassium 3.9 3.5-5.1 Lvl) [facility]2017-09-08 08:09:00 Test Item Value Reference Range Interpretation Comments Sodium Lvl (test code = Sodium Lvl) 139 135-145 [facility] CenterOfzbfwoGLRWEGHREQ0434-04-17 02:21:00 Test Item Value Reference Range Interpretation Comments Hgb (test code = Hgb) 13.7 14.0-18.0 [facility] CenterVxramomSVVAHUPCLQ6911-71-80 02:21:00 Test Item Value Reference Range Interpretation Comments Hct (test code = Hct) 41.6 42.0-54.0 [facility]2017-09-07 19:50:00 Test Item Value Reference Range Interpretation Comments Globulin (test code = Globulin) 4.3 2.7-4.2 [facility]2017-09-07 19:50:00 Test Item Value Reference Range Interpretation Comments B/C Ratio (test code = B/C Ratio) 12 6-25 [facility]2017-09-07 19:50:00 Test Item Value Reference Range Interpretation Comments A/G Ratio (test code = A/G Ratio) 1.0 0.7-1.6 [facility]2017-09-07 19:50:00 Test Item Value Reference Range Interpretation Comments AGAP (test code = AGAP) 13.0 10.0-20.0 [facility]2017-09-07 19:50:00 Test Item Value Reference Range Interpretation Comments eGFR (test code = eGFR) 83 [facility]2017-09-07 19:50:00 Test Item Value Reference Range Interpretation Comments Alk Phos (test code = Alk Phos) 65 39-136 [facility]2017-09-07 19:50:00 Test Item Value Reference Range Interpretation Comments Bili Total (test code = Bili Total) 0.4 0.2-1.3 [facility]2017-09-07 19:50:00 Test Item Value Reference Range Interpretation Comments Chloride Lvl (test code = Chloride Lvl) 102 95-109 [facility]2017-09-07 19:50:00 Test Item Value Reference Range Interpretation Comments ALT (test code = ALT) 34 <=65 [facility]2017-09-07 19:50:00 Test Item Value Reference Range Interpretation Comments AST (test code = AST) 21 <=37 [place] [id number] 19:50:00 Test Item Value Reference Range Interpretation Comments Glucose Lvl (test code = Glucose Lvl) 129 70-99 [facility]2017-09-07 19:50:00 Test Item Value Reference Range Interpretation Comments BUN (test code = BUN) 15 7-22 [facility]2017-09-07 19:50:00 Test Item Value Reference Range Interpretation Comments Creatinine Lvl (test code = Creatinine 1.25 0.50-1.40 Lvl) [facility]2017-09-07 19:50:00 Test Item Value Reference Range Interpretation Comments Sodium Lvl (test code = Sodium Lvl) 139 135-145 [facility]2017-09-07 19:50:00 Test Item Value Reference Range Interpretation Comments Potassium Lvl (test code = Potassium 4.0 3.5-5.1 Lvl) [facility]2017-09-07 19:50:00 Test Item Value Reference Range Interpretation Comments CO2 (test code = CO2) 28 24-32 [facility]2017-09-07 19:50:00 Test Item Value Reference Range Interpretation Comments Calcium Lvl (test code = Calcium Lvl) 9.1 8.5-10.5 [facility]2017-09-07 19:50:00 Test Item Value Reference Range Interpretation Comments Total Protein (test code = Total 8.4 6.4-8.4 Protein) [facility]2017-09-07 19:50:00 Test Item Value Reference Range Interpretation Comments Albumin Lvl (test code = Albumin Lvl) 4.1 3.5-5.0 [facility] CenterVrpxxkyIJLYUDXLIB6571-29-11 19:50:00 Test Item Value Reference Range Interpretation Comments Lymphocytes # (test code = Lymphocytes 1.2 1.0-5.5 #) [facility] CenterUyqkjeqAKAFMKCYTT4039-27-18 19:50:00 Test Item Value Reference Range Interpretation Comments Segs-Bands # (test code = Segs-Bands #) 2.4 1.5-8.1 [facility] CenterBrgkspuRLVSNXSIOS8454-86-23 19:50:00 Test Item Value Reference Range Interpretation Comments Basophils (test code = Basophils) 0.4 <=1.0 [facility] CenterSaqjiyuVZOXZTOSPM2579-29-92 19:50:00 Test Item Value Reference Range Interpretation Comments Lymphocytes (test code = Lymphocytes) 29.2 20.0-40.0 [facility] CenterLeysaakNKFMNRMIGQ5662-92-80 19:50:00 Test Item Value Reference Range Interpretation Comments Monocytes (test code = Monocytes) 10.6 2.0-12.0 [facility] CenterBwxicwkCMWMXRFJHQ6368-68-40 19:50:00 Test Item Value Reference Range Interpretation Comments Segs (test code = Segs) 56.5 45.0-75.0 [facility] CenterHeordtoKFBIHNSCXR6219-77-91 19:50:00 Test Item Value Reference Range Interpretation Comments Eosinophils (test code = Eosinophils) 3.3 <=4.0 [facility] CenterQqmmlplPFYHLQLKYZ8786-25-66 19:50:00 Test Item Value Reference Range Interpretation Comments Monocytes # (test code = Monocytes #) 0.5 <=0.8 [place] 373697-09-07 19:50:00 Test Item Value Reference Range Interpretation Comments Eosinophils # (test code = Eosinophils 0.1 <=0.5 #) [facility] CenterRhwegfzENOZZWJYBG5116-07-06 19:50:00 Test Item Value Reference Range Interpretation Comments Basophils # (test code = Basophils #) 0.0 <=0.2 [facility] CenterHcqinkaUTDOICDWVE5332-48-13 19:50:00 Test Item Value Reference Range Interpretation Comments PT (test code = PT) 13.7 s 12.0-14.7 [facility] CenterAcijdqiDJDIOSEMSC4185-85-67 19:50:00 Test Item Value Reference Range Interpretation Comments INR (test code = INR) 1.03 0.85-1.17 [facility] CenterMfdvzqdGWDOERBNWJ4525-02-23 19:50:00 Test Item Value Reference Range Interpretation Comments PTT (test code = PTT) 25.3 s 22.9-35.8 [facility] CenterUllgmeiETKEJPFYIN3955-05-52 19:50:00 Test Item Value Reference Range Interpretation Comments RBC (test code = RBC) 5.26 4.70-6.10 [facility] CenterEelextyERBOOXEKJY4732-72-44 19:50:00 Test Item Value Reference Range Interpretation Comments WBC (test code = WBC) 4.3 3.7-10.4 [facility] CenterNyaosjgIKLTFIBBWG1204-80-35 19:50:00 Test Item Value Reference Range Interpretation Comments Hct (test code = Hct) 44.4 42.0-54.0 [facility] CenterOychvaaKTFUVYWTDA5219-74-35 19:50:00 Test Item Value Reference Range Interpretation Comments Hgb (test code = Hgb) 14.3 14.0-18.0 [facility] CenterNlyyazwTVROZORLGW4559-54-20 19:50:00 Test Item Value Reference Range Interpretation Comments MCHC (test code = MCHC) 32.2 32.0-36.0 [facility] CenterNgreukpZRNKYBBVGV3140-85-97 19:50:00 Test Item Value Reference Range Interpretation Comments MCV (test code = MCV) 84.4 80.0-94.0 [facility] CenterAkzmpqtXXWGZXABYZ7632-13-68 19:50:00 Test Item Value Reference Range Interpretation Comments RDW (test code = RDW) 15.3 11.5-14.5 [facility] CenterOeopgspQCJBPCYEUD8476-67-51 19:50:00 Test Item Value Reference Range Interpretation Comments MCH (test code = MCH) 27.2 pg 27.0-31.0 [facility] CenterUksahytHMFHOKHSQO6160-25-15 19:50:00 Test Item Value Reference Range Interpretation Comments MPV (test code = MPV) 9.8 7.4-10.4 [facility] HbwiajfGRGYNCTTHT7571-96-41 19:50:00 Test Item Value Reference Range Interpretation Comments Platelet (test code = Platelet) 180 133-450 [facility] KXXYO1441-15-85 19:50:00 Test Item Value Reference Range Interpretation Comments Occult Bld Stl (test Negative (01/11/17 2:50 code = Occult Bld Stl) PM) [facility]CARD[facility] ESJAKSM1080-24-17 12:28:00 Test Item Value Reference Range Interpretation Comments Total CK (test code = Total CK) 999 12-191 [facility] LPCNTQA8948-74-35 12:28:00 Test Item Value Reference Range Interpretation Comments CK MB (test code = CK MB) 1.3 0.5-3.6 [facility] BULIVIK7564-38-63 12:28:00 Test Item Value Reference Range Interpretation Comments BNP (test code = BNP) 21 [facility] SGTOOHM0826-41-46 12:28:00 Test Item Value Reference Range Interpretation Comments Troponin-I (test code = Troponin-I) no gt <=0.40 [facility] XRROLYP4617-12-41 12:28:00 Test Item Value Reference Range Interpretation Comments CK MB Index (test code = CK MB Index) 0.1 <=2.5 [facility]annCHEM CAJOK0538-32-96 12:28:00 Test Item Value Reference Range Interpretation Comments Globulin (test code = Globulin) 4.2 2.7-4.2 [facility]amediaannCHEM CPISD4426-56-83 12:28:00 Test Item Value Reference Range Interpretation Comments B/C Ratio (test code = B/C Ratio) 11 6-25 [facility]annCHEM CAFPC3250-43-04 12:28:00 Test Item Value Reference Range Interpretation Comments A/G Ratio (test code = A/G Ratio) 0.9 0.7-1.6 [facility]annCHE[facility] HGDBI3309-81-78 12:28:00 Test Item Value Reference Range Interpretation Comments eGFR (test code = eGFR) 73 [facility]annCHEM WKPLG6560-97-21 12:28:00 Test Item Value Reference Range Interpretation Comments Alk Phos (test code = Alk Phos) 67 39-136 [facility]iaannCHEM TNSGT3749-43-50 12:28:00 Test Item Value Reference Range Interpretation Comments Bili Total (test code = Bili Total) 0.3 0.2-1.3 [facility]2017-06-15 12:28:00 Test Item Value Reference Range Interpretation Comments AGAP (test code = AGAP) 12.0 10.0-20.0 [facility]2017-06-15 12:28:00 Test Item Value Reference Range Interpretation Comments Glucose Lvl (test code = Glucose Lvl) 98 70-99 [facility]2017-06-15 12:28:00 Test Item Value Reference Range Interpretation Comments Creatinine Lvl (test code = Creatinine 1.39 0.50-1.40 Lvl) [facility]2017-06-15 12:28:00 Test Item Value Reference Range Interpretation Comments BUN (test code = BUN) 15 7-22 [facility]2017-06-15 12:28:00 Test Item Value Reference Range Interpretation Comments Chloride Lvl (test code = Chloride Lvl) 103 95-109 [facility]2017-06-15 12:28:00 Test Item Value Reference Range Interpretation Comments CO2 (test code = CO2) 29 24-32 [facility]2017-06-15 12:28:00 Test Item Value Reference Range Interpretation Comments Calcium Lvl (test code = Calcium Lvl) 8.7 8.5-10.5 [facility]2017-06-15 12:28:00 Test Item Value Reference Range Interpretation Comments Sodium Lvl (test code = Sodium Lvl) 140 135-145 [facility]2017-06-15 12:28:00 Test Item Value Reference Range Interpretation Comments Potassium Lvl (test code = Potassium 4.0 3.5-5.1 Lvl) [facility]2017-06-15 12:28:00 Test Item Value Reference Range Interpretation Comments Total Protein (test code = Total 8.0 6.4-8.4 Protein) [facility]2017-06-15 12:28:00 Test Item Value Reference Range Interpretation Comments Albumin Lvl (test code = Albumin Lvl) 3.8 3.5-5.0 [facility]2017-06-15 12:28:00 Test Item Value Reference Range Interpretation Comments ALT (test code = ALT) 35 <=65 [facility]2017-06-15 12:28:00 Test Item Value Reference Range Interpretation Comments AST (test code = AST) 31 <=37 [facility] CenterFayduloGUWYTKBVHJ4269-12-85 12:28:00 Test Item Value Reference Range Interpretation Comments Platelet (test code = Platelet) 212 133-450 [facility] CenterTkzshfsZIOOJQUGXE3624-06-05 12:28:00 Test Item Value Reference Range Interpretation Comments MPV (test code = MPV) 9.3 7.4-10.4 [facility] CenterArdzejdERODGARVUY7585-49-59 12:28:00 Test Item Value Reference Range Interpretation Comments MCHC (test code = MCHC) 32.1 32.0-36.0 [facility] CenterYregbneMBYRKUHSJT2078-61-79 12:28:00 Test Item Value Reference Range Interpretation Comments RDW (test code = RDW) 16.0 11.5-14.5 [facility] CenterWcgmvsaUMCXMCODOC1693-21-01 12:28:00 Test Item Value Reference Range Interpretation Comments MCH (test code = MCH) 27.1 pg 27.0-31.0 [facility] CenterChwvcxaLPUJDLFVDN7385-30-69 12:28:00 Test Item Value Reference Range Interpretation Comments Hct (test code = Hct) 43.4 42.0-54.0 [facility] CenterGqopfukBXKKLCLBYN5200-21-35 12:28:00 Test Item Value Reference Range Interpretation Comments MCV (test code = MCV) 84.4 80.0-94.0 [facility] CenterSrdkinqKXWFNKYUIN2611-77-87 12:28:00 Test Item Value Reference Range Interpretation Comments WBC (test code = WBC) 3.6 3.7-10.4 [facility] CenterDcwbbktWEFWJUPZMY9457-70-32 12:28:00 Test Item Value Reference Range Interpretation Comments RBC (test code = RBC) 5.14 4.70-6.10 [facility] CenterBbhajtsACUDGKAJHK1469-41-52 12:28:00 Test Item Value Reference Range Interpretation Comments Hgb (test code = Hgb) 13.9 14.0-18.0 [facility] CenterYpwshqxKVIMVAHWUK5236-11-93 12:28:00 Test Item Value Reference Range Interpretation Comments Eosinophils # (test code = Eosinophils 0.1 <=0.5 #) [facility] CenterFysydzvZMRVOMEYPF1030-47-61 12:28:00 Test Item Value Reference Range Interpretation Comments Basophils # (test code = Basophils #) 0.0 <=0.2 [facility] CenterOzxmkarTPMEEXYZVK4224-51-76 12:28:00 Test Item Value Reference Range Interpretation Comments Monocytes # (test code = Monocytes #) 0.4 <=0.8 [facility] CenterWfgonxpBLUWEHZOQM0790-14-14 12:28:00 Test Item Value Reference Range Interpretation Comments Segs-Bands # (test code = Segs-Bands #) 2.2 1.5-8.1 [facility] CenterMdabmcqTCYZZNAWDG4376-04-47 12:28:00 Test Item Value Reference Range Interpretation Comments Lymphocytes # (test code = Lymphocytes 0.8 1.0-5.5 #) [facility] CenterGxgtxmvVLQNNUEFGB4296-35-51 12:28:00 Test Item Value Reference Range Interpretation Comments Basophils (test code = Basophils) 0.1 <=1.0 [facility] CenterWvqeftvEHHCOQAWCE5028-56-41 12:28:00 Test Item Value Reference Range Interpretation Comments Monocytes (test code = Monocytes) 12.4 2.0-12.0 [facility] CenterRlhxzafJRFSDKWWDG1893-84-79 12:28:00 Test Item Value Reference Range Interpretation Comments Eosinophils (test code = Eosinophils) 3.0 <=4.0 [facility] CenterAncjtdyXTIYOLSWFJ4674-03-87 12:28:00 Test Item Value Reference Range Interpretation Comments Lymphocytes (test code = Lymphocytes) 22.9 20.0-40.0 [facility] CenterOvurpjcYQJVDQMRTG0134-63-38 12:28:00 Test Item Value Reference Range Interpretation Comments Segs (test code = Segs) 61.6 45.0-75.0 [facility]
[2023-03-28 11:05] LABS: Absolute Lymphocytes (CBC) 1.1 K/uL (0.7-4.9); Hematocrit 42.5 % (39.6-49.0); Lymphocytes % 16.8 % (15.3-44.8); MCV 82.7 fL (80-100); MPV 8.8 fL (7.6-11.3); Platelets 200 thou/uL (152-406); RBC Red Blood Cell Count 5.14 M/uL (4.33-5.43)
[2023-03-28 11:10] LABS: Specific Gravity 1.024 (1.005-1.030); Urine Bacteria None Seen /HPF (<20); Urine Bilirubin NEGATIVE (Negative); Urine Blood Negative (Negative); Urine Clarity Clear (Clear); Urine Color Light-Yellow (Yellow); Urine Glucose NEGATIVE (Negative); Urine Mucus Slight /HPF (None Seen); Urine Protein TRACE (Negative); Urine RBC <5 /HPF (None Seen); Urine Urobilinogen Normal (Normal); Urine pH 5.5 (5.0-7.0)
[2023-03-28] MEDS ORDERED: NA CHLORIDE 0.9% 1,000 ML ONE ×2 (11:12→19:07)
[2023-03-28] MEDS ORDERED: ONDANSETRON 4 MG/2 ML VIAL ONE (11:12)
[2023-03-28] MEDS ORDERED: MORPHINE 4 MG/ML SYR ONE ×2 (11:12→19:07)
[2023-03-28] MEDS ORDERED: DICYCLOMINE HCL 20 MG/2 ML AMP IM ONE (11:12)
[2023-03-28 11:25] LABS: Bilirubin Total 0.5 mg/dL (0.2-1.0); Potassium 3.5 mEq/L (3.5-5.1); Protein, Total 8.3 g/dL (6.4-8.2)
--- NOTE | 2023-03-28 12:17 | RAD REPORT ---
EXAM DESCRIPTION: CT - Abdomen Pelvis W Contrast - 03/28/2023 11:33 am CLINICAL HISTORY: ABD PAIN COMPARISON: No comparisons TECHNIQUE: Thin cut axial CT imaging of the abdomen and pelvis was performed following intravenous a dministration of 100 mL Isovue 300. Multiplanar reformats were generated and reviewed. All CT scans are performed using dose optimization technique as appropriate and may include automated exposure control or mA/KV adjustment according to patient size. FINDINGS: No suspicious findings in the lung bases. The liver shows small foci of hypoattenuation, largest in the left lobe measuring 11 millimeter, diff icult to characterize, but likely benign. Spleen, adrenal glands, and pancreas show no suspicious fin dings. Gallbladder and biliary tree are also without suspicious finding. Symmetric renal function is seen with no hydronephrosis or suspicious renal mass. Moderately dilated mid to distal small bowel loops with air-fluid levels. Abrupt transition point to nondistended small bowel in the right lower quadrant, axial image 71/107. No free air, free fluid or inflammatory stranding. No hernia, mass or bulky lymphadenopathy. The urinary bladder is decompressed limiting evaluation. No suspicious bony findings. IMPRESSION: Findings of small bowel obstruction with abrupt transition point in the right lower quad rant. No other acute intra- abdominal process. Incidental findings as above. The findings were communicated to Steve Serrano on 03/28/2023 at 12:01 hours.
--- NOTE | 2023-03-28 12:46 | EDPHYS ---
Physician Documentation [facility] Name: Michael Rogers Age: 47 yrs Sex: Male : 1975 Arrival Date: 03/28/2023 Time: 10:26 Bed 19 Private MD: ED Physician Steve Serrano HPI: 03/28 10:43 This 47 yrs old Black Male presents to ER via Ambulatory with complaints of Abdominal rt Pain, Nausea/Vomiting. 10:43 Patient presents to the ED with abdominal pain, nausea and vomiting starting last rt night. Denies hematemesis, hematochezia, diarrhea. Pain is localized mostly to the central abdominal region, is crampy in nature. Has never had similar symptoms previously. Denies other acute complaints, symptoms are moderate severity, no other aggravating or alleviating factors.. Historical: - Allergies: 10:37 Vicodin; iw - Home Meds: 10:37 losartan oral [Active]; Clonidine Oral [Active]; iw - PMHx: 10:37 Hypertensive disorder; iw - PSHx: 10:37 Hemorrhoidectomy; iw - Immunization history:: Adult Immunizations Client reports receiving the 2nd dose of the Covid vaccine. - Social history:: Smoking status: Patient denies any tobacco usage or history of. - Family history:: not pertinent. ROS: 10:43 Constitutional: Negative for fever, chills, and weight loss, Cardiovascular: Negative rt for chest pain, palpitations, and edema, Respiratory: Negative for shortness of breath, cough, wheezing, and pleuritic chest pain, : Negative for injury, bleeding, discharge, and swelling, MS/Extremity: Negative for injury and deformity, Skin: Negative for injury, rash, and discoloration, Neuro: Negative for headache, weakness, numbness, tingling, and seizure, Psych: Negative for depression, anxiety, suicide ideation, homicidal ideation, and hallucinations, 10:43 Abdomen/GI: Positive for abdominal pain, nausea and vomiting, Exam: 10:43 Constitutional: This is a well developed, well nourished patient who is awake, alert, rt and in no acute distress. Head/Face: Normocephalic, atraumatic. Chest/axilla: Normal chest wall appearance and motion. Nontender with no deformity. No lesions are appreciated. Cardiovascular: Regular rate and rhythm with a normal S1 and S2. No gallops, murmurs, or rubs. Normal PMI, no JVD. No pulse deficits. Respiratory: Lungs have equal breath sounds bilaterally, clear to auscultation and percussion. No rales, rhonchi or wheezes noted. No increased work of breathing, no retractions or nasal flaring. Skin: Warm, dry with normal turgor. Normal color with no rashes, no lesions, and no evidence of cellulitis. MS/ Extremity: Pulses equal, no cyanosis. Neurovascular intact. Full, normal range of motion. Neuro: Awake and alert, GCS 15, oriented to person, place, time, and situation. Cranial nerves II-XII grossly intact. Motor strength 5/5 in all extremities. Sensory grossly intact. Cerebellar exam normal. Normal gait. Psych: Awake, alert, with orientation to person, place and time. Behavior, mood, and affect are within normal limits. 10:43 Abdomen/GI: Tenderness diffusely, worse in the right lower quadrant, mild guarding, no rebound, no distention, Vital Signs: 10:36 Resp 16; Weight 95.25 kg; Height 5 ft. 10 in. ; Pain 8/10; iw 11:07 BP 157 / 82; Pulse 69; Resp 18; Temp 97.5(O); Pulse Ox 100% on R/A; me1 11:15 BP 122 / 63; Pulse 69; Resp 17; Pulse Ox 100% on R/A; me1 12:15 BP 127 / 76; Pulse 74; Resp 16; Pulse Ox 98% on R/A; me1 13:18 BP 149 / 91; Pulse 77; Resp 18; Pulse Ox 100% on R/A; me1 13:51 BP 146 / 80; Pulse 77; Resp 18; Pulse Ox 100% on R/A; me1 14:15 BP 116 / 78; Pulse 75; Resp 17; Pulse Ox 100% on R/A; me1 14:45 BP 160 / 81; Pulse 69; Resp 18; Pulse Ox 98% on R/A; me1 15:30 BP 119 / 64; Pulse 72; Resp 16; Pulse Ox 97% on R/A; me1 15:30 BP 121 / 76; Pulse 76; Resp 18; Pulse Ox 100% on R/A; me1 10:36 Body Mass Index 30.13 (95.25 kg, 177.8 cm) iw 10:36 Pain Scale: Adult iw MDM: 10:36 Patient medically screened. rt 12:46 Differential diagnosis: Gastroenteritis, appendicitis, bowel obstruction. Data rt reviewed: vital signs, nurses notes, lab test result(s), radiologic studies. Consideration of Admission/Observation Patient was admitted/placed on observation. Management of patient was discussed with the following: Mate Fourth: Discussed with general surgery on-call, recommend Nancy Kirkland, hospitalist admission. I considered the following discharge prescriptions or medication management in the emergency department Medications were administered in the Emergency Department. See MAR. Independent interpretation of the following test(s) in the Emergency Department CT Scan: My interpretation is Bowel obstruction syndrome interpretation of CT scan images. Care significantly affected by the following chronic conditions: Hypertension. Counseling: I had a detailed discussion with the patient and/or guardian regarding the historical points, exam findings, and any diagnostic results supporting the discharge/admit diagnosis, lab results, radiology results, the need for further work-up and treatment in the hospital. Response to treatment: the patient's symptoms have markedly improved after treatment. 03/28 10:42 Order name: CBC with Diff; Complete Time: 11:30 rt 03/28 10:42 Order name: CMP; Complete Time: 11:30 rt 03/28 10:42 Order name: Lipase; Complete Time: 11:30 rt 03/28 10:42 Order name: Urinalysis w/ reflexes; Complete Time: 11:30 rt 03/28 14:22 Order name: Magnesium EDNM 03/28 14:22 Order name: Phosphorus EDNM 03/28 14:22 Order name: Urinalysis w/ reflexes EDMS 03/28 14:22 Order name: Basic Metabolic Panel EDNM 03/28 14:22 Order name: Basic Metabolic Panel EDNM 03/28 14:22 Order name: CBC with Automated Diff EDMS 03/28 14:22 Order name: CBC with Automated Diff EDMS 03/28 14:22 Order name: Lipid Profile EDNM 03/28 14:22 Order name: Lipid Profile EDNM 03/28 14:24 Order name: Hemoglobin A1c EDNM 03/28 10:42 Order name: CT Abd/Pelvis - IV Contrast Only; Complete Time: 12:26 rt 03/28 14:19 Order name: CONS Physician Consult EDMS 03/28 10:42 Order name: IV Saline Lock; Complete Time: 10:44 rt 03/28 10:42 Order name: Labs collected and sent; Complete Time: 10:56 rt Administered Medications: 11:06 Drug: NS 0.9% IV 1000 ml IV at 1 bolus Per protocol; 1000 mL bolus Route: IV; Rate: 1 me1 bolus; Site: left antecubital; 13:12 Follow up: IV Status: Completed infusion me1 11:06 Drug: Ondansetron IVP 4 mg IVP once; over 2 minutes Route: IVP; Site: left antecubital; me1 11:54 Follow up: Response: No adverse reaction; Nausea is decreased me1 11:06 Drug: Dicyclomine IM 20 mg IM once Route: IM; Site: right deltoid; me1 11:54 Follow up: Response: No adverse reaction; Pain is decreased me1 11:07 Drug: morphine IVP or IV 4 mg IVP once over 4 mins Route: IVP; Infused Over: 4 mins; me1 Site: left antecubital; 11:53 Follow up: Response: No adverse reaction; Pain is decreased me1 13:15 Drug: metroNIDAZOLE IVPB 500 mg 100 ml IVPB at 200 ml/hr once over 30 mins Volume: 100 me1 ml; Route: IVPB; Rate: 200 ml/hr; Infused Over: 30 mins; Site: left antecubital; 14:11 Follow up: Response: No adverse reaction; IV Status: Completed infusion me1 14:12 Drug: Ciprofloxacin IVPB 400 mg 200 ml IVPB once over 60 mins Volume: 200 ml; Route: me1 IVPB; Infused Over: 60 mins; Site: left antecubital; 15:04 Follow up: Response: No adverse reaction; IV Status: Completed infusion me1 Disposition Summary: 03/28/23 12:46 Hospitalization Ordered Notes: Hospitalization Status: Inpatient Admission rt Provider: Damir Keith rt [facility] rt Condition: Stable rt Problem: new rt Symptoms: have improved rt Bed/Room Type: Standard rt Room Assignment: 404(03/28/23 18:48) bd Diagnosis - Small bowel obstruction rt Forms: - Medication Reconciliation Form rt - SBAR form rt - Leadership Thank You Letter rt Signatures: Dispatcher [employer] Zuleika Ye Irene LILI RN iw Steve Serrano MD MD rt Ynes Ambrocio, LILI RN me1 Corrections: (The following items were deleted from the chart) 14:36 12:46 rt bd 15:35 14:36 419 bd iw 18:48 15:35 iw bd
--- NOTE | 2023-03-28 12:46 | ER ---
Nurse's Notes [facility] Name: Michael Rogers Age: 47 yrs Sex: Male : 1975 Arrival Date: 03/28/2023 Time: 10:26 Bed 19 Private MD: Diagnosis: Small bowel obstruction Presentation: 03/28 10:36 Chief complaint: Patient states: lower abd pain , n/v , since last night , 12/14. iw Coronavirus screen: At this time, the client does not indicate any symptoms associated with coronavirus-19. Ebola Screen: Patient negative for fever greater than or equal to 101.5 degrees Fahrenheit, and additional compatible Ebola Virus Disease symptoms Patient denies exposure to infectious person. Patient denies travel to an Ebola-affected area in the 21 days before illness onset. No symptoms or risks identified at this time. Initial Sepsis Screen: Does the patient meet any 2 criteria? No. Patient's initial sepsis screen is negative. Does the patient have a suspected source of infection? No. Patient's initial sepsis screen is negative. Risk Assessment: Do you want to hurt yourself or someone else? Patient reports no desire to harm self or others. Onset of symptoms was March 27, 2023. 10:36 Method Of Arrival: Ambulatory iw 10:36 Acuity: CANDIS 3 iw Historical: - Allergies: 10:37 Vicodin; iw - Home Meds: 10:37 losartan oral [Active]; Clonidine Oral [Active]; iw - PMHx: 10:37 Hypertensive disorder; iw - PSHx: 10:37 Hemorrhoidectomy; iw - Immunization history:: Adult Immunizations Client reports receiving the 2nd dose of the Covid vaccine. - Social history:: Smoking status: Patient denies any tobacco usage or history of. - Family history:: not pertinent. Screenin:39 [facility] ED Fall Risk Assessment (Adult) History of falling in the last 3 months, me1 including since admission No falls in past 3 months (0 pts) Confusion or Disorientation No (0 pts) Intoxicated or Sedated No (0 pts) Impaired Gait No (0 pts) Mobility Assist Device Used No (0 pt) Altered Elimination No (0 pt) Score/Fall Risk Level 0 - 2 = Low Risk. Abuse screen: Denies threats or abuse. Nutritional screening: No deficits noted. Nutritional screening: No deficits noted. Tuberculosis screening: No symptoms or risk factors identified. Assessment: 10:39 General: Appears uncomfortable, well groomed, well developed, well nourished, Behavior me1 is cooperative, appropriate for age, restless, Reports lower abdominal pain 8/10 that started last night with nausea and vomiting. Pain: Complains of pain in lower abdomen Pain does not radiate. Pain currently is 8 out of 10 on a pain scale. Quality of pain is described as crampy, Pain began 1 day ago. Is continuous. Neuro: Level of Consciousness is awake, alert, obeys commands, Oriented to person, place, time, situation, Appropriate for age. Cardiovascular: Capillary refill < 3 seconds Patient's skin is warm and dry. Respiratory: Airway is patent Respiratory effort is even, unlabored, Respiratory pattern is regular, symmetrical. GI: Abdomen is round Bowel sounds present X 4 quads. Abd is soft X 4 quads Reports lower abdominal pain, nausea, vomiting. 15:30 General: attempted to call 4th floor to give report. No answer. . me1 15:40 General: Attempted to call report to 4th floor. No answer. . me1 Vital Signs: 10:36 Resp 16; Weight 95.25 kg; Height 5 ft. 10 in. ; Pain 8/10; iw 11:07 BP 157 / 82; Pulse 69; Resp 18; Temp 97.5(O); Pulse Ox 100% on R/A; me1 11:15 BP 122 / 63; Pulse 69; Resp 17; Pulse Ox 100% on R/A; me1 12:15 BP 127 / 76; Pulse 74; Resp 16; Pulse Ox 98% on R/A; me1 13:18 BP 149 / 91; Pulse 77; Resp 18; Pulse Ox 100% on R/A; me1 13:51 BP 146 / 80; Pulse 77; Resp 18; Pulse Ox 100% on R/A; me1 14:15 BP 116 / 78; Pulse 75; Resp 17; Pulse Ox 100% on R/A; me1 14:45 BP 160 / 81; Pulse 69; Resp 18; Pulse Ox 98% on R/A; me1 15:30 BP 119 / 64; Pulse 72; Resp 16; Pulse Ox 97% on R/A; me1 15:30 BP 121 / 76; Pulse 76; Resp 18; Pulse Ox 100% on R/A; me1 10:36 Body Mass Index 30.13 (95.25 kg, 177.8 cm) iw 10:36 Pain Scale: Adult iw ED Course: 10:29 Patient arrived in ED. mr 10:30 Steve Serrano MD is Attending Physician. rt 10:37 Triage completed. iw 10:38 Arm band placed on. iw 10:39 Ynes Ambrocio, LILI is Primary Nurse. me1 10:39 Patient has correct armband on for positive identification. Placed in gown. Bed in low me1 position. Call light in reach. Side rails up X 1. Provided Education on: POC. Verbalized understanding. . 10:39 No provider procedures requiring assistance completed. Inserted saline lock: 20 gauge me1 in left antecubital area, using aseptic technique. 10:56 Urinalysis w/ reflexes Sent. me1 10:56 CMP Sent. me1 10:56 CBC with Diff Sent. me1 11:34 CT Abd/Pelvis - IV Contrast Only In Process Unspecified. EDMS 12:45 Damir Keith MD is Hospitalizing Provider. rt 20:55 Patient admitted, IV remains in place. me1 Administered Medications: 11:06 Drug: NS 0.9% IV 1000 ml IV at 1 bolus Per protocol; 1000 mL bolus Route: IV; Rate: 1 me1 bolus; Site: left antecubital; 13:12 Follow up: IV Status: Completed infusion me1 11:06 Drug: Ondansetron IVP 4 mg IVP once; over 2 minutes Route: IVP; Site: left antecubital; me1 11:54 Follow up: Response: No adverse reaction; Nausea is decreased me1 11:06 Drug: Dicyclomine IM 20 mg IM once Route: IM; Site: right deltoid; me1 11:54 Follow up: Response: No adverse reaction; Pain is decreased me1 11:07 Drug: morphine IVP or IV 4 mg IVP once over 4 mins Route: IVP; Infused Over: 4 mins; me1 Site: left antecubital; 11:53 Follow up: Response: No adverse reaction; Pain is decreased me1 13:15 Drug: metroNIDAZOLE IVPB 500 mg 100 ml IVPB at 200 ml/hr once over 30 mins Volume: 100 me1 ml; Route: IVPB; Rate: 200 ml/hr; Infused Over: 30 mins; Site: left antecubital; 14:11 Follow up: Response: No adverse reaction; IV Status: Completed infusion [facility] 14:12 Drug: Ciprofloxacin IVPB 400 mg 200 ml IVPB once over 60 mins Volume: 200 ml; Route: me1 IVPB; Infused Over: 60 mins; Site: left antecubital; 15:04 Follow up: Response: No adverse reaction; IV Status: Completed infusion [facility] Medication: 10:39 VIS not applicable for this client. ct1 Outcome: 12:46 Decision to Hospitalize by Provider. rt 20:[address]1 20:11 Condition: stable 20:16 Admitted to Tele accompanied by tech, via wheelchair, room 404, with chart, Report me1 called to LILI Hagen 20:16 Instructed on the need for admit, 20:55 Patient left the ED. [facility] Signatures: Dispatcher [employer] EDBonnie Amaro, Reg Reg mr Sirisha Moore RN RN iw Steve Serrano MD MD rt Ynes Ambrocio RN RN [facility]
[2023-03-28] MEDS ORDERED: METRONIDAZOLE 500mg IVPB 500 MG/100 ML BAG IV ONE (13:28)
[2023-03-28] MEDS ORDERED: CIPROFLOXACIN 400mg IV 400 MG/200 ML BAG IV ONE (13:28)
[2023-03-28] MEDS ORDERED: MORPHINE 4 MG/ML SYR IV PRN (14:16)
[2023-03-28] MEDS ORDERED: ACETAMINOPHEN 650MG/RECT SUPP PR PRN (14:18)
[2023-03-28] MEDS ORDERED: ONDANSETRON 4 MG/2 ML VIAL IV PRN (14:20)
--- NOTE | 2023-03-28 14:24 | P.HP ---
Certification for Inpatient Patient admitted to: Inpatient With expected LOS: >2 Midnights Patient will require the following post-hospital care: None Practitioner: I am a practitioner with admitting privileges, knowledge of patient current condition, hospital course, and medical plan of care. Services: Services provided to patient in accordance with Admission requirements found in Title 42 Section 412.3 of the Code of Federal Regulations Patient History Date of Service: 03/28/23 Reason for admission: Abdominal pain. History of Present Illness: Patient is a 47-year-old male with a past medical history significant for hypertension, prediabetes, hyperlipidemia who presents with complaint of abdominal pain located in the periumbilical area onset yesterday. Patient rated pain as 8/10 in severity and described pain as sharp in quality. Patient reported associated signs and symptoms of nausea and vomiting. Patient denies any other signs and symptoms. Symptoms are aggravated or relieved by nothing. Patient decided to present to the hospital due to worsening symptoms. Of note patient reported that his last bowel movement was this morning. - Past Medical/Surgical History -: HTN -: Obesity -: Prediabetes -: HLD Past Surgical History: Patient denies surgical history - Family History Mother -: Hypertension, Diabetes - Social History Smoking Status: Former smoker Alcohol use: Yes CD- Drugs: No Caffeine use: No Place of Residence: Home Review of Systems General: Unremarkable Eyes: Unremarkable ENT: Unremarkable Respiratory: Unremarkable Cardiovascular: Unremarkable Gastrointestinal: Nausea, Vomiting, Abdominal Pain Genitourinary: Unremarkable Musculoskeletal: Unremarkable Integumentary: Unremarkable Neurological: Unremarkable Lymphatics: Unremarkable Physical Examination - Physical Exam General: Alert, In no apparent distress, Oriented x3, Cooperative HEENT: Atraumatic, PERRLA, Mucous membr. moist/pink, EOMI, Sclerae nonicteric Neck: Supple, 2+ carotid pulse no bruit, No LAD, Without JVD or thyroid abnormality Respiratory: Clear to auscultation bilaterally, Normal air movement Cardiovascular: No edema, Regular rate/rhythm, Normal S1 S2 Capillary refill: <2 Seconds Gastrointestinal: Normal bowel sounds, Non-distended, Tenderness Musculoskeletal: No clubbing, No swelling, No tenderness Integumentary: No rashes, No breakdown, No significant lesion Neurological: Normal gait, Normal speech, Normal strength at 5/5 x4 extr, Normal tone, Normal affect Lymphatics: No axilla or inguinal lymphadenopathy - Studies Laboratory Data (last 24 hrs) 03/28/23 03/28/23 10:48 10:48 WBC 6.40 Hgb 14.4 Hct 42.5 Plt Count 200 Sodium 133 L Potassium 3.5 BUN 13 Creatinine 1.27 Glucose 133 H Total Bilirubin 0.5 AST 22 ALT 45 Alkaline Phosphatase 70 Lipase 18 Assessment and Plan - Plan --SBO. CT abdomen indicates Small bowel obstruction with abrupt transition point in the right lower quadrant. Surgeon consulted. We will keep patient NPO. Continue IV hydration. Surgeon recommends placing patient on prophylactic antibiotics and repeat abdominal x-ray in a.m. Continue supportive care. --Nausea and vomiting. Antiemetics on board. Continue IV hydration. --Acute pain. We will manage pain with current pain medication regimen. -- Hypertension. Poorly controlled. Continue home medication when appropriate and hydralazine as needed. --Hyperlipidemia. Continue home medication. --Class I obesity. Likely secondary to excess calories intake. Patient counseled on weight reduction, diet and excise therapy. --Prediabetes. Hemoglobin A1c pending for further evaluation. Patient counseled on diet and excise therapy. --DVT prophylaxis with SCDs. Discharge Plan: Home Plan to discharge in: Greater than 2 days - Advance Directives Does patient have a Living Will: No Does patient have a Durable POA for Healthcare: No - Code Status/Comfort Care Code Status Assessed: Yes Physician Review: Patient Assessed, Agree with Above Assessment and Plan Critical Care: No
[2023-03-28] MEDS: NA CHLORIDE 0.9% 1,000 ML IV SCH (15:00)
--- NOTE | 2023-03-28 15:07 | CON ---
Date of Consultation: 03/28/2023 Reason For Consultation: Abdominal pain. History Of Present Illness: The patient is a 47-year-old gentleman, who presented to the emergency r oom with 1-day history of nausea, vomiting, and abdominal pain, periumbilical in nature. No diarrhea or constipation. Had a bowel movement this morning. States that he is passing gas. No blood in hi s stool. No family history of colorectal malignancy. No sore throat, runny nose, cough, headaches, or dizziness. No chest pain. No fever or chills. Review of Systems: Otherwise unremarkable. Past Medical History: Significant for hypertension. Past Surgical History: Hemorrhoidectomy. Allergies: INCLUDE VICODIN. Social History: The patient does not smoke. Does not drink. Family History: Noncontributory. Physical Examination: Vital Signs: Stable. He is afebrile. General: He is awake, alert, oriented x3. Head and Neck: Cranial nerves 2 through 12 grossly within normal limits. No neck masses. No JVD. Throat clear. Neck is supple. Chest: Clear. Heart: S1, S2. Abdomen: Soft, slightly distended. No peritonitis. No tenderness. No abdominal wall hernia apprec iated. Hypoactive bowel sounds and soft. Extremities: Adequately perfused. Nontender. Neuro: Nonfocal. Laboratory Data: Reviewed, essentially within normal limits. White count is 6.4, slight left shift. Chemistry reviewed as well and CT of the abdomen and pelvis reviewed, shows small bowel obstruction pattern with focal point near the right lower quadrant. There is no other acute intraabdominal proc ess noted. There is no other evidence of ischemia appreciated. Assessment: Small bowel obstruction, likely partial. Clinically, the patient is still having bowel movements and passing gas. Recommendations: Admit n.p.o. IV fluid, IV antibiotics, serial abdominal exam. Check an x-ray sara rrow to make sure he is improving and if clinically indicated, the patient may need intervention, but the likelihood of that is very low at this time. We will follow this patient. /MODL Voice ID: [id number] Report ID: [id number]
[2023-03-28] MEDS ORDERED: HYDRALAZINE HCL 20 MG/ML VIAL IV PRN (17:09)
[2023-03-28] MEDS: PIPER TAZO 3.375 GM in NA CHLORIDE 0.9% 100 ML IV SCH (18:55)
[2023-03-28] MEDS ORDERED: NA CHLORIDE 0.9% 100 ML ONE (19:07)
[2023-03-28] MEDS ORDERED: PIPERACIL/TAZO 3.375 GM VIAL IV ONE (19:08)
[2023-03-28 21:52] VITALS: O2SAT 98; BMI 30.1
[2023-03-28 22:57] LABS: Magnesium 2.1 mg/dL (1.6-2.4); Phosphorus 2.8 mg/dL (2.5-4.9)
[2023-03-29] MEDS: PIPER TAZO 3.375 GM in NA CHLORIDE 0.9% 100 ML IV SCH ×2 (01:58→09:28)
[2023-03-29] MEDS: NA CHLORIDE 0.9% 1,000 ML IV SCH (06:43)
[2023-03-29 07:22] LABS: Absolute Lymphocytes (CBC) 0.8 K/uL (0.7-4.9); Lymphocytes % 24.9 % (15.3-44.8); MCV 81.9 fL (80-100); MPV 8.8 fL (7.6-11.3); Platelets 174 thou/uL (152-406); RBC Red Blood Cell Count 4.77 M/uL (4.33-5.43)
[2023-03-29 07:40] LABS: Potassium 3.3 mEq/L (3.5-5.1)
--- NOTE | 2023-03-29 07:46 | RAD REPORT ---
EXAM DESCRIPTION: RAD - Abdomen 1 View (KUB) - 03/29/2023 5:43 am CLINICAL HISTORY: Abdomen pain FINDINGS: Dilatation of the small bowel has diminished and is within normal limits Air is present within the colon Resolution of the small bowel obstruction
[2023-03-29 07:49] VITALS: BP 112/56; TEMP 98
[2023-03-29] MEDS ORDERED: INFLUENZA VACCINE (for 6+ mo) 0.5 ML DOSE IMVAC ONE (08:00)
[2023-03-29] MEDS ORDERED: POTASSIUM CL SA 10 MEQ TAB PO ONE (10:36)
--- NOTE | 2023-03-29 10:52 | PN ---
Date of Progress Note: 03/29/2023 Subjective: Patient feels absolutely no pain. No nausea, no vomiting. Passing gas. Had a bowel mo vement yesterday. Abdominal x-ray shows no evidence of obstruction anymore. Objective: Vital Signs: Stable. Afebrile. Abdomen: Soft, nondistended, nontender. Positive bowel sounds. White count 3.1. There is no left shift. Assessment: Small bowel obstruction, resolved. Recommendation: GI soft diet. If tolerated, the patient can be discharged home. Follow up with GI doctor. MARINA/STONE Voice ID: [id number] Report ID: [id number]
--- NOTE | 2023-03-29 11:58 | P.DS ---
Admission Date: 03/28/23 Discharge Date: 03/29/23 Disposition: ROUTINE DISCHARGE Discharge Condition: GOOD Reason for Admission: Abdominal pain. Brief History of Present Illness: Patient is a 47-year-old male with a past medical history significant for hypertension, prediabetes, hyperlipidemia who presents with complaint of abdominal pain located in the periumbilical area onset yesterday. Patient rated pain as 8/10 in severity and described pain as sharp in quality. Patient reported associated signs and symptoms of nausea and vomiting. Patient denies any other signs and symptoms. Symptoms are aggravated or relieved by nothing. Patient decided to present to the hospital due to worsening symptoms. Of note patient reported that his last bowel movement was this morning. Vital Signs/Physical Exam: Temp Pulse Resp BP Pulse Ox 98 F 68 17 112/56 L 99 03/29/23 07:47 03/29/23 07:47 03/29/23 07:47 03/29/23 07:47 03/29/23 07:47 Laboratory Data at Discharge: WBC 3.10 thou/uL (4.3-10.9) L 03/29/23 06:20 Hgb 13.0 g/dL (13.6-17.9) L D 03/29/23 06:20 Hct 39.0 % (39.6-49.0) L 03/29/23 06:20 Plt Count 174 thou/uL (152-406) 03/29/23 06:20 Sodium 137 mEq/L (136-145) D 03/29/23 06:20 Potassium 3.3 mEq/L (3.5-5.1) L 03/29/23 06:20 BUN 10 mg/dL (7-18) 03/29/23 06:20 Creatinine 1.31 mg/dL (0.70-1.30) H 03/29/23 06:20 Glucose 102 mg/dL (74-106) 03/29/23 06:20 Phosphorus 2.8 mg/dL (2.5-4.9) 03/28/23 10:48 Magnesium 2.1 mg/dL (1.6-2.4) 03/28/23 10:48 Total Bilirubin 0.5 mg/dL (0.2-1.0) 03/28/23 10:48 AST 22 U/L (15-37) 03/28/23 10:48 ALT 45 U/L (16-61) 03/28/23 10:48 Alkaline Phosphatase 70 U/L (45-117) 03/28/23 10:48 Triglycerides 115 mg/dL (<150) 03/29/23 06:20 Cholesterol 176 mg/dL (<200) 03/29/23 06:20 HDL Cholesterol 76 mg/dL (40-60) H 03/29/23 06:20 Cholesterol/HDL Ratio 2.32 03/29/23 06:20 Lipase 18 U/L (13-75) 03/28/23 10:48 Physician Discharge Instructions: Follow up with PCP in 1 week and GI MD\Surgeon in 2 Weeks Diet: Regular Activity: Weight bearing as tolerated Followup: NONE,NONE [Primary Care Provider] -
== END 2023-03-29 14:45 | disposition home or self-care (01) | DRG 390 ==
LOC: ER 10:26 → ERHOLD 14:26 → 4TH 20:19
PROVIDERS: ADMIT Internal Medicine Nephrology; ATTEND Internal Medicine Nephrology
DX: K56.609 Unspecified intestinal obstruction, unspecified as to partial versus complete obstruction (principal); I10 Essential (primary) hypertension; E78.5 Hyperlipidemia, unspecified; E66.09 Other obesity due to excess calories; Z88.5 Allergy status to narcotic agent; Z71.3 Dietary counseling and surveillance; Z68.30 Body mass index [BMI] 30.0-30.9, adult; Z87.891 Personal history of nicotine dependence; Z79.899 Other long term (current) drug therapy
CPT/HCPCS: 36415; 74018; 74177; 80048; 80053; 80061; 81001; 83036; 83690; 83735; 84100; 85025; 96361; 96365; 96367; 96372; 96375; 99285; J0500; J0744; J2405; J2543; J7030; Q9967